=== PATIENT | male | born 1955 | race Caucasian/White ===

== ENCOUNTER 2017-05-12 13:48 | Emergency (ER) | payer OTHER ==
[~2017-05-12] VITALS: Ht 170.2 cm; Wt 72.7 kg
[~2017-05-12 13:48] MED LIST: ADVAIR IH; ASPRIN PO; IPRA0.2S51 HHN
--- NOTE | 2017-05-12 13:50 | ED.REPORT ---
HPI-General Illness Date of Service May 12, 2017 ED Provider: The patient is a 62 year old male with history of COPD, who was brought to the emergency department by EMS for sharp RLQ abdominal pain that began earlier today. His pain radiates through to his back. He has been on antibiotics over the last week and has had associated diarrhea. His pain today began after he had an episode of diarrhea. He denies fever, chills, nausea, vomiting, bloody stools, dysuria or hematuria. Nursing Notes Stated Complaint: abdominal pain Nursing Notes Reviewed: Yes Allergies: Coded Allergies: Sulfa (Sulfonamide Antibiotics) (Verified Allergy, Severe, USED WHEN CHILD - DOESN'T RECALL REACTION, 05/12/17) Scheduled ([Amox/K]) 1 TAB PO BID Flutic/Salmet-Expunged Drug, Do Not Renew! (Advair 500/50-Expunged Drug, Do Not Renew!) 60 Puff Disk 60 PUFF IH QID Ipratropium-Expunged Drug, Do Not Renew! (Ipratropium-Expunged Drug, Do Not Renew!) 2.5 Ml Soln 2.5 ML HHN QIDP Prednisone (PredniSONE) 20 Mg Tablet 20 MG PO DAILY taper Roflumilast (Daliresp) 500 Mcg Tablet 500 MCG PO DAILY General Time Seen by MD: 13:50 Chief Complaint Abdominal pain Hx Obtained From: Patient, EMS Arrived By: Ambulance Sudden in Onset?: Yes Onset Occurred: 1 - 4 hours ago Symptom Duration: Since onset Location: : Abdomen Quality: Painful Radiation: : Back Severity: Current: Moderate Severity: Maximum: Moderate Recent Healthcare: No recent hospitalization Similar Sx Previous: No Past Medical History Past Medical History COPD Family History Noncontributory Smoking History Unknown if Ever Smoker Social History Other Social History: Local resident Ambulatory Status Independent Review of Systems Full Review of Systems Constitutional: Denies: Chills, Fever GI: Reports: Abdominal pain, Diarrhea, Denies: Bloody/tarry stool, Hematochezia, Melena, Nausea, Vomiting Male: Denies Dysuria, Denies Hematuria Musculoskeletal: Reports: Back pain Complete sys rev & neg: except as marked. Physical Exam Vital Signs Vital Signs Date Time Temp Pulse Resp B/P Pulse Ox O2 Delivery O2 Flow Rate FiO2 05/12/17 16:32 36.5 83 16 121/85 96 Nasal Cannula 3 05/12/17 16:07 83 16 121/85 96 Nasal Cannula 3 05/12/17 16:01 86 16 122/92 98 Nasal Cannula 3 05/12/17 15:29 36.5 98 13 125/83 99 Nasal Cannula 3 05/12/17 13:58 36.8 92 18 119/63 96 Nasal Cannula 2 Initial VS: Reviewed Head / Eyes: Atraumatic, Normocephalic, PERRL ENT: Mucous membranes moist, Conjunctiva normal, No scleral icterus Neck: Supple, Non-tender, Full range of motion Cardiovascular: Regular rate & rhythm, Heart sounds normal, Intact distal pulses Lymphatic: No lymphadenopathy Extremities: Vascular intact, Neuro intact, No swelling, No tenderness Skin: Warm, Dry, No cyanosis Neurologic: Alert, Oriented, Nonfocal Psychiatric: Mood/affect normal, Behavior normal, Normal thought content General/Constitutional: Awake, Alert, Cooperative Respiratory / Chest: Breath sounds = bilat, No respiratory distress, No wheezing Rales / Rhonchi: Positive: Rales diffuse (fine) Abdomen: Soft, No guarding, No rebound, BS normoactive, No distention, No hernia, No palpable mass, No pulsatile mass Tenderness/Guarding/Rebound: Positive: Tender RLQ... (Mild) Interpretation & Diagnostics Lab Results Interpretation Result Diagram: 05/12/17 1400 05/12/17 1400 Test 05/12/17 14:00 White Blood Count 14.9th/mm3 (3.8-10.1) Red Blood Count 5.43mil/mm3 (4.40-5.80) Hemoglobin 15.3g/dL (13.8-17.2) Hematocrit 46.6% (41.0-50.0) Mean Corpuscular Volume 85.8fL (81-100) Mean Corpuscular Hemoglobin 28.2pg (27.0-35.0) Mean Corpuscular Hemoglobin Concent 32.8% (32.0-37.0) Red Cell Distribution Width 13.9% (12.3-15.4) Platelet Count 352bil/L (150-400) Neutrophils (%) (Auto) 79.2% (40-74) Lymphocytes (%) (Auto) 13.1% (14-46) Monocytes (%) (Auto) 5.6% (4-12) Eosinophils (%) (Auto) 1.3% (0-5) Basophils (%) (Auto) 0.3% (0-3) Sodium Level 138mEq/L (134-144) Potassium Level 4.0mEq/L (3.5-5.2) Chloride Level 99mEq/L (97-108) Carbon Dioxide Level 21mmol/L (18-29) Blood Urea Nitrogen 22mg/dL (8-27) Creatinine 1.02mg/dL (0.76-1.27) Estimat Glomerular Filtration Rate 79mL/min (>59) Glucose Level 145mg/dL (60-99) Calcium Level 9.0mg/dL (8.5-10.1) Magnesium Level 2.2mg/dL (1.6-2.6) Total Bilirubin 0.4mg/dL (0.0-1.2) Aspartate Amino Transf (AST/SGOT) 13U/L (0-50) Alanine Aminotransferase (ALT/SGPT) 13U/L (0-44) Alkaline Phosphatase 90U/L (25-160) Total Protein 7.1g/dL (6.4-8.4) Albumin 3.9g/dL (3.4-5.0) Lipase 28U/L (13-60) CT Abd / Pelvis Interpretation IMPRESSION: 1. Abdominal aortic aneurysm at 6.5 cm diameter with evidence of perianeurysmal hemorrhage but without visible extravasation of intraluminal contrast. 2. Regarding right lower quadrant pain, appendix is not specifically imaged but no inflammatory changes are evident around the cecum which is fluid-filled. 3. Pulmonary emphysema is apparent as seen on previous chest CT exams 4. Mild prostatic enlargement. 5. Hiatal hernia. Note: Findings discussed with Dr. Oakes in the ED at 1510 hrs. on 05/12/2017 Dictated by: Keenan Goss M.D. on 05/12/2017 at 15:12 Study type: Abdominal CT IV contrast, Abdom CT oral contrast Interpretation / Wet Read by: Interpret - Radiologist, Discussed w radiologist Re-Eval/Medical Decision Med Decision/Clinical Course Evidence of ruptured abdominal aortic aneurysm. Patient is not profoundly hypertensive however esmolol is initiated. Initial hemoglobin stable. Pain controlled with morphine. Patient will be transferred to [facility] for definitive management. Source of Hx: Old records, EMS Time of Eval: 15:14 Re-Evaluation/Progress Note: Rechecked the patient. Discussed CT results and plan for transfer down [facility] with the patient and his family members. They understand and agree. All questions were addressed. The patient would like to be a full code. Time of Eval: 15:30 Re-Evaluation/Progress Note: Rechecked the patient. His vitals are stable. Time of Eval: 15:40 Re-Evaluation/Progress Note: Rechecked the patient. Time of Eval: 15:55 Re-Evaluation/Progress Note: Rechecked the patient. He is aware of plan. Awaiting airlift. Time of Eval: 16:02 Re-Evaluation/Progress Note: Airlift is here to transfer the patient. Time of Eval: 16:12 Re-Evaluation/Progress Note: The patient has left the department. Consultation #1: Referral / Consult Name: Keenan Goss MD Call Returned at: 15:15 Note: Spoke with the radiologist about the patient's case. Consultation #2: Call Returned at: 15:29 Note: Discussed the patient's case with Dr. Hernandez from [facility]. Recommends transfer, esmolol, gtt, permissive hypotension. She will call airlift and would like us to call and see when ALS can be here. Consultation #3: Call Returned at: 15:35 Note: Airlift will be here in about 20 minutes. Counseled Regarding: Diagnosis, Lab results, Need for transfer Discharge & Departure Primary Impression: Leaking abdominal aortic aneurysm Disposition: Transfer, Acute Care Facility Receiving Hospital: [facility] Transfer Accepted: Yes Transfer Accepted at: 15:31 Transfer Reason: Higher level of care Spoke with: Attending physician (Dr. Hernandez) Patient Status: Stable, Stable for transfer, Stabilized within capabil Patient Informed: Yes Discharge Condition All VS Reviewed: Yes Condition: Stable Referrals: James Blackburn MD (PCP) Crit Care Except Billable Proc Time Spent: 75-104 minutes Services Performed: Patient management by me, Time spent at bedside, Reviewing test results, Reviewing imaging, Discussing patient care, Documentation in record, Time with fam/surrogate Critical Care Notes: See MDM Scribe Attestation Portions of this note were transcribed by Maki Brandon. I, Dr. Moore personally performed the history, physical exam and medical decision-making; I reviewed and confirmed the accuracy of the information in the transcribed note. Signed by: Soledad Moe, 05/12/17 at 1700. copies to: James Blackburn MD, Timothy S DO May 12, 2017 13:50 Maik Brandon May 12, 2017 13:53
[2017-05-12 13:58] VITALS: BP 119/63; PULSE 92; RESP 18; O2SAT 96
[2017-05-12 14:04] LABS: BASOPHILS % (AUTO) 0.3 % (0-3); EOSINOPHILS % (AUTO) 1.3 % (0-5); MONOCYTES % (AUTO) 5.6 % (4-12); Mean Corpuscular Hemoglobin 28.2 pg (27.0-35.0); Mean Corpuscular Volume 85.8 fL (81-100); NEUTROPHILS % (AUTO) 79.2 % (40-74); Platelet Count 352 bil/L (150-400)
[2017-05-12] MEDS ORDERED: 0.9% Sodium Chloride 1,000 ML IV ONE (14:05)
[2017-05-12] MEDS ORDERED: Ondansetron 2 mg/mL 2 mL Inj IVPUSH PRN (14:05)
[2017-05-12 14:26] LABS: Magnesium 2.2 mg/dL (1.6-2.6)
[2017-05-12] MEDS ORDERED: Esmolol 2,500 mg/250 mL NS 2,500,000 MCG in IV Premix 1 EACH IV SCH (15:15)
--- NOTE | 2017-05-12 15:26 | DRSVH ---
PROCEDURE: CT ABDOMEN AND PELVIS WITH CONTRAST (PNL-7102) INDICATIONS: RLQ/Flank pain TECHNIQUE: After the administration of oral and intravenous contrast, 5 mm thick sections acquired from the diap hragms to the symphysis. 5 mm thick coronal and sagittal reformats were performed. For radiation do se reduction, the following was used: automated exposure control, adjustment of mA and/or kV accordi ng to patient size. COMPARISON: None. FINDINGS: Image quality: Excellent. ABDOMEN: Lung bases: Lung bases are clear. Centrilobular emphysema is evident. Heart size is normal. Hiatal hernia. Solid organs: Liver and spleen are normal in size and enhancement. Gallbladder is normal. Biliary system is non-dilated. Pancreas enhances normally. No adrenal nodules. Kidneys are normal in size and enhancement, without hydronephrosis. A small cortical medullary cyst is present in the midpole of the right kidney. Peritoneum and bowel: Stomach, small bowel, and colon loops are normal in caliber and wall thickness . The cecum is fluid-filled. No pericecal fat stranding is apparent. The appendix is not seen. No karina e fluid or air. Nodes and vessels: Immediately caudal to the origin of the renal arteries is a saccular abdominal aor tic aneurysm that measures 6.4 cm transverse by 6.5 cm AP by 6.7 cm craniocaudal there is surrounding high density fluid compatible with blood that extends from the level of the portal vein superiorly, past the aortic bifurcation and along the right common iliac artery distally. The hemorrhage also tereza rounds the inferior vena cava inferior to the right renal vein. The aortic lumen is and the iliac ves sels are patent. Miscellaneous: No ventral hernias. PELVIS: Genitourinary: Bladder wall thickness is normal. Prostate is mildly enlarged with dystrophic calcifi cations. Miscellaneous: No inguinal hernias or adenopathy. Bones: No suspicious bony lesions. No vertebral body compression fractures. IMPRESSION: 1. Abdominal aortic aneurysm at 6.5 cm diameter with evidence of perianeurysmal hemorrhage but withou t visible extravasation of intraluminal contrast. 2. Regarding right lower quadrant pain, appendix is not specifically imaged but no inflammatory iyer es are evident around the cecum which is fluid-filled. 3. Pulmonary emphysema is apparent as seen on previous chest CT exams 4. Mild prostatic enlargement. 5. Hiatal hernia. Note: Findings discussed with Dr. Oakes in the ED at 1510 hrs. on 05/12/2017 Dictated by: Keenan Goss M.D. on 05/12/2017 at 15:12 Approved by: Keenan Goss M.D. on 05/12/2017 at 15:24
[2017-05-12 15:29] VITALS: BP 125/83; PULSE 98; RESP 13; O2SAT 99
[2017-05-12] MEDS ORDERED: ROFL500T PO (15:52)
[2017-05-12] MEDS ORDERED: AMOX/K PO (15:52)
[2017-05-12] MEDS ORDERED: PRE20 PO (15:52)
[2017-05-12 16:01] VITALS: BP 122/92; PULSE 86; RESP 16; O2SAT 98
[2017-05-12 16:07] VITALS: BP 121/85; PULSE 83; RESP 16; O2SAT 96
[2017-05-12 16:32] VITALS: BP 121/85; PULSE 83; RESP 16; O2SAT 96
== END 2017-05-12 16:15 | disposition short-term general hospital (02) ==
LOC: SED 13:48 → EDBD 13:48 → EDUNIT# 13:48 → SED 16:15
DX: I71.3 Abdominal aortic aneurysm, ruptured (principal); R19.7 Diarrhea, unspecified; J44.9 Chronic obstructive pulmonary disease, unspecified; Z88.2 Allergy status to sulfonamides
CPT/HCPCS: 36415; 74177; 80053; 83690; 83735; 85025; 86922; 96361; 96374; 96375; 96376; 99291; 99292; J2270; J2405; J7030; Q9967

== ENCOUNTER 2017-06-11 15:10 | Emergency (ER) | payer OTHER ==
[~2017-06-11] VITALS: Ht 170.2 cm; Wt 66.0 kg
[~2017-06-11 15:10] MED LIST changes: +AMOX/K PO; -ASPRIN PO; +PRE20 PO; +ROFL500T PO
[2017-06-11 15:16] VITALS: BP 144/79; PULSE 106; RESP 15; O2SAT 95
--- NOTE | 2017-06-11 15:29 | ED.REPORT ---
HPI-Abd Pain M 40 and Over Date of Service Jun 11, 2017 ED Provider: Albino Tomlin DO Pt is a 62 year old male with a hx of COPD, pneumonia, HTN, hyperlipidemia, emphysema and a recent ruptured aortic aneurysm s/p repair presenting to the ED via EMS from [facility] complaining of intermittent periumbilical abdominal pain and discomfort onset 6 days ago worsened today. Associated symptoms include nasal congestion, nausea and a fever (99.7). Denies constipation, vomiting, or diarrhea. The pain is not exacerbated or relieved by anything. He was recently hospitalized for 9 days at [facility] for a repair of a leaking aortic aneurysm and has been at [facility] ever since. He is regularly on 3L of Oxygen at home. Nursing Notes Stated Complaint: ABD PAIN Chief Complaint: Male Abdominal Pain Nursing Notes Reviewed: Yes Allergies: Coded Allergies: Sulfa (Sulfonamide Antibiotics) (Verified Allergy, Severe, USED WHEN CHILD - DOESN'T RECALL REACTION, 05/12/17) Scheduled ([Amox/K]) 1 TAB PO BID Flutic/Salmet-Expunged Drug, Do Not Renew! (Advair 500/50-Expunged Drug, Do Not Renew!) 60 Puff Disk 60 PUFF IH QID Ipratropium-Expunged Drug, Do Not Renew! (Ipratropium-Expunged Drug, Do Not Renew!) 2.5 Ml Soln 2.5 ML HHN QIDP Prednisone (PredniSONE) 20 Mg Tablet 20 MG PO DAILY taper Roflumilast (Daliresp) 500 Mcg Tablet 500 MCG PO DAILY General Time Seen by MD: 15:15 Chief Complaint Abdominal pain Hx Obtained From: Patient Arrived By: Walk-in Sudden in Onset?: No Onset Occurred: 6 days ago Symptom Duration: Intermittent Progression since Onset: Constant Location: : Periumbilical Quality: Painful Severity: Current: Moderate Severity: Maximum: Moderate Recent Healthcare: Recent hospitalization, Previous surgery Similar Sx Previous: No Past Medical History Past Medical History Emphysema Reports: COPD, Hyperlipidemia, Hypertension Past Surgical History Recent leaking aortic aneurysm repair surgery Family History Noncontributory Smoking History Unknown if Ever Smoker Social History Other Social History: Local resident Ambulatory Status Independent Review of Systems Constitutional: Reports: Fever GI: Reports: Abdominal pain, Nausea, Denies: Constipation, Diarrhea, Vomiting Complete sys rev & neg: except as marked. Ears / Nose / Throat: Reports: Nasal congestion Physical Exam Initial Vital Signs Vital Signs (First) Date Time Temp Pulse Resp B/P Pulse Ox O2 Delivery O2 Flow Rate FiO2 06/11/17 15:16 36.7 106 15 144/79 95 Nasal Cannula 3 Initial VS: Reviewed Head / Eyes: Atraumatic, Normocephalic, PERRL ENT: Mucous membranes moist, Conjunctiva normal, No scleral icterus Extremities: Vascular intact, Neuro intact, No swelling, No tenderness Skin: Warm, Dry, No cyanosis Neurologic: Alert, Oriented, Nonfocal Psychiatric: Mood/affect normal, Behavior normal, Normal thought content General/Constitutional: Awake, Alert, No acute distress, Well appearing Respiratory / Chest: Breath sounds NL, Breath sounds = bilat, No respiratory distress, No rales, No rhonchi, No wheezing Cardiovascular: Regular rhythm Heart Rate / Rhythm: Positive: Tachycardia Heart sounds diminished Abdomen: Atraumatic, Soft, No guarding, No rebound Bowel Sounds / Distention: Positive: Distention mild Mild periumbilical discomfort. Well healed midline abdominal scar. Interpretation & Diagnostics Lab Results Interpretation Result Diagram: 06/11/17 1615 06/11/17 1615 Test 06/11/17 16:15 06/11/17 19:10 White Blood Count 6.1th/mm3 (3.8-10.1) Red Blood Count 4.14mil/mm3 (4.40-5.80) Hemoglobin 11.6g/dL (13.8-17.2) Hematocrit 35.8% (41.0-50.0) Mean Corpuscular Volume 86.5fL (81-100) Mean Corpuscular Hemoglobin 28.0pg (27.0-35.0) Mean Corpuscular Hemoglobin Concent 32.4% (32.0-37.0) Red Cell Distribution Width 13.4% (12.3-15.4) Platelet Count 265bil/L (150-400) Neutrophils (%) (Auto) 74.2% (40-74) Lymphocytes (%) (Auto) 16.3% (14-46) Monocytes (%) (Auto) 5.9% (4-12) Eosinophils (%) (Auto) 2.8% (0-5) Basophils (%) (Auto) 0.5% (0-3) Prothrombin Time 10.4sec (8.1-12.5) Prothromb Time International Ratio 0.97ratio Sodium Level 136mEq/L (134-144) Potassium Level 3.6mEq/L (3.5-5.2) Chloride Level 96mEq/L (97-108) Carbon Dioxide Level 24mmol/L (18-29) Blood Urea Nitrogen 14mg/dL (8-27) Creatinine 0.86mg/dL (0.76-1.27) Estimat Glomerular Filtration Rate 96mL/min (>59) Glucose Level 96mg/dL (60-99) Lactic Acid Level 0.9mmol/L (0.4-2.0) Calcium Level 9.4mg/dL (8.5-10.1) Magnesium Level 1.8mg/dL (1.6-2.6) Total Bilirubin 0.4mg/dL (0.0-1.2) Aspartate Amino Transf (AST/SGOT) 24U/L (0-50) Alanine Aminotransferase (ALT/SGPT) 32U/L (0-44) Alkaline Phosphatase 113U/L (25-160) Total Protein 7.9g/dL (6.4-8.4) Albumin 3.9g/dL (3.4-5.0) Lipase 71U/L (13-60) Urine Color Yellow (YELLOW) Urine Appearance Clear (CLEAR,HAZY) Urine pH 5.5 (5.0-8.0) Urine Specific [place] 1.010 (1.003-1.035) Urine Protein Negativemg/dL (NEG,TRACE) Urine Glucose (UA) Negativemg/dL (NEGATIVE) Urine Ketones 15mg/dL (NEGATIVE) Urine Occult Blood Trace (NEGATIVE) Urine Nitrite Negative (NEGATIVE) Urine Bilirubin Negative (NEGATIVE) Urine Urobilinogen Normalmg/dL (NORMAL) Urine Leukocyte Esterase Negative (NEGATIVE) Urine RBC 0-2/hpf (0-2) Urine WBC 0-5/hpf (0-5) Urine Epithelial Cells Few/hpf (NONE-MOD) Urine Crystals None seen (NONE SEEN) Urine Bacteria None/hpf (NONE-FEW) Urine Hyaline Casts None/lpf (NONE) Urine Granular Casts None seen (NONE SEEN) Urine Waxy Casts None seen (NONE SEEN) Urine Red Blood Cell Casts None seen (NONE SEEN) Urine White Blood Cell Casts None seen (NONE SEEN) Urine Mucus None seen (None Seen) Urine Trichomonas None seen (NONE SEEN) Urine Yeast None (NONE SEEN) Urinalysis Comment None Urine Culture Reflexed Not indicated ECG Interpretation ECG Interpretation: Sinus tachycardia, LAFB. No ST changes appreciated. No significant change from September 18 2004. Time: 15:59 Interpreted by: ED physician Abnormal Rate: 100 (103) CT Abd / Pelvis Interpretation IMPRESSION: Interval postoperative changes of open abdominal aortic aneurysm repair. There is mild inflammatory change about the repair with no evidence of recurrent rupture or leak. These findings may represent simple postoperative change. Infection cannot be excluded. Heterogeneous right renal enhancement may represent differential flow resulting from multiple renal arteries. Both kidneys enhance which makes renal infarction unlikely. Please correlate for clinical symptoms of renal dysfunction. Recommend short-term followup dedicated multiphasic renal CT if pain persists or if clinical evidence of renal dysfunction arises. Findings and recommendations discussed with Dr. Tomlin via telephone ([phone]) at 18:45 on 06/11/2017. Dictated by: Esteban Zapata M.D. on 06/11/2017 at 19:05 ADDENDUM: Heterogeneous right renal enhancement representing differential flow caused by relative narrowing and attenuation of an accessory renal artery delivering blood to the anterior aspect of the right kidney. This portion of the right kidney demonstrates delayed enhancement (essentially a partially delayed nephrogram) relative to the remaining right kidney and the left kidney most consistent with an ischemic state. Findings and recommendations discussed with Dr. Tomlin via telephone ([phone]) at 20:20 on 06/11/2017. Dictated by: Esteban Zapata M.D. on 06/11/2017 at 20:28 Study type: Abdominal CT IV contrast, Abdom CT oral contrast Interpretation / Wet Read by: Interpret - Radiologist Re-Eval/Medical Decision Med Decision/Clinical Course 62-year-old male with a history of recent AAA rupture status post emergency surgical repair at [facility] on 05/12/17 complicated by postoperative pneumonia , COPD on 3 L of O2 at home, and hypertension presenting from [facility] in [place] with periumbilical abdominal pain for the past several days. His pain is rated at 4.5 out of 10 at its worst and has been progressing until today. He wants to make sure that he is okay in light of all the things he has recently been through. They attempted to perform an JOE R and converted to open aortobifemoral bypass. Surgical findings included saccular infrarenal aneurysm. His EKG is at baseline, other than tachycardic. UA does not show evidence of UTI. Pt was d/c'd home in stable condition. Received a phone call from radiology with addendum report as seen above with some concern about renal ischemia. I called and spoke with his surgeon, Dr. Bragg at [facility] who reviewed his images and labs with me and did not feel that there was any cause for concern. He has a followup appointment scheduled this week with Jake. Time of Eval: 18:43 Patient Status: Condition improved Re-Evaluation/Progress Note: Discussed radiology and lab results and plan for discharge. Pt understands and agrees with plan. Consultation : Note: I spoke with Dr. Bragg, his vascular surgeon at [facility] at [address]. He has no concerns about his renal function or the appearance of his kidneys on imaging. He will be happy to see patient this upcoming week in follow-up. Counseled Regarding: Diagnosis, Lab results, Need for follow-up, When/why to return to ED Discharge & Departure Primary Impression: Periumbilical abdominal pain Additional Impression: Tachycardia Disposition: Home Vital Signs - All Vital Signs Date Time Temp Pulse Resp B/P Pulse Ox O2 Delivery O2 Flow Rate FiO2 06/11/17 19:43 36.5 78 16 131/74 99 Nasal Cannula 3 06/11/17 18:14 36.8 101 16 129/88 98 Room Air 06/11/17 15:16 36.7 106 15 144/79 95 Nasal Cannula 3 )( All Prior VS Reviewed: Yes Condition: Improved Patient Instructions: Acute Abdominal Pain (ED) Additional Instructions: Thank you for entrusting us with your care today. Your abdominal CT scan did not show any sign of a leak in your aneurysm repair. There is some inflammation , which is not abnormal at this point after your surgery. Your urine results were normal and did not show any sign of a bladder infection. Follow up with your vascular doctor with next week. We sent the images of the CT today down to [facility] electronically. Return to the ER if you develop any new or worsening symptoms. Referrals: James Blackburn MD (PCP) Scribe Attestation Portions of this note were transcribed by Claribel Lei. I, Dr. Tomlin personally performed the history, physical exam and medical decision-making; I reviewed and confirmed the accuracy of the information in the transcribed note. Signed by: Soledad Haines, 06/11/2017. copies to: Jaems Blackburn MD, Gary R DO Jun 11, 2017 15:29 CLARIBEL LEI Jun 11, 2017 15:51
[2017-06-11] MEDS ORDERED: Iohexol 300 mg/mL 30 mL Inj PO ONE (15:50)
[2017-06-11] MEDS ORDERED: HYDROmorphone 0.5 mg/0.5 mL iSecure Syringe IVPUSH PRN (15:50)
[2017-06-11] MEDS ORDERED: Ondansetron 2 mg/mL 2 mL Inj IVPUSH PRN (15:50)
[2017-06-11] MEDS ORDERED: 0.9% Sodium Chloride 1,000 ML IV ONE (16:09)
[2017-06-11 17:14] LABS: BASOPHILS % (AUTO) 0.5 % (0-3); EOSINOPHILS % (AUTO) 2.8 % (0-5); MONOCYTES % (AUTO) 5.9 % (4-12); Mean Corpuscular Volume 86.5 fL (81-100); NEUTROPHILS % (AUTO) 74.2 % (40-74); Platelet Count 265 bil/L (150-400)
[2017-06-11 17:18] LABS: INR 0.97 ratio
[2017-06-11 17:27] LABS: Magnesium 1.8 mg/dL (1.6-2.6)
[2017-06-11 18:14] VITALS: BP 129/88; PULSE 101; RESP 16; O2SAT 98
--- NOTE | 2017-06-11 19:15 | DRSVH ---
PROCEDURE: CT ABDOMEN AND PELVIS WITH CONTRAST (PNL-7102) INDICATIONS: recent AAA surgery, periumbilical pain TECHNIQUE: After the administration of oral and intravenous contrast, 5 mm thick sections acquired from the diap hragms to the symphysis. 5 mm thick coronal and sagittal reformats were performed. For radiation do se reduction, the following was used: automated exposure control, adjustment of mA and/or kV accordi ng to patient size. COMPARISON: [facility], CT, CT ABD PELVIS W CON, 05/12/2017, 14:55. FINDINGS: Image quality: Excellent. ABDOMEN: Lung bases: Lung bases are clear. Heart size is normal. Solid organs: Heterogeneous enhancement in the right kidney with the posterior half of the right kidn ey enhancing in similar manner to the left kidney. However, both kidneys enhance with no evidence of complete renal infarction. The liver, gallbladder, pancreas, spleen and adrenal glands are normal.. Peritoneum and bowel: Stomach, small bowel, and colon loops are normal in caliber and wall thickness . No free fluid or air. Nodes and vessels: Postoperative changes of open abdominal aortic aneurysm repair. There is mild elzbieta stinctness and inflammatory change about the repair itself with a small amount of likely postoperativ e fluid immediately inferior to the aortic bifurcation. There is no extravasated contrast to suggest new rupture of the repair. Old left common and external iliac stents. Miscellaneous: No ventral hernias. PELVIS: Genitourinary: Bladder wall thickness is normal. Miscellaneous: No inguinal hernias or adenopathy. Bones: No suspicious bony lesions. No vertebral body compression fractures. IMPRESSION: Interval postoperative changes of open abdominal aortic aneurysm repair. There is mild inflammatory c hange about the repair with no evidence of recurrent rupture or leak. These findings may represent si mple postoperative change. Infection cannot be excluded. Heterogeneous right renal enhancement may represent differential flow resulting from multiple renal a rteries. Both kidneys enhance which makes renal infarction unlikely. Please correlate for clinical sy mptoms of renal dysfunction. Recommend short-term followup dedicated multiphasic renal CT if pain per sists or if clinical evidence of renal dysfunction arises. Findings and recommendations discussed with Dr. Tomlin via telephone ([phone]) at 18:45 on 09/2017. Dictated by: Esteban Zapata M.D. on 06/11/2017 at 19:05 Approved by: Esteban Zapata M.D. on 06/11/2017 at 19:14
[2017-06-11 19:43] VITALS: BP 131/74; PULSE 78; RESP 16; O2SAT 99
[2017-06-11 19:53] LABS: APPEARANCE,URINE CLEAR (CLEAR,HAZY); COLOR,URINE YELLOW (YELLOW); OCCULT BLOOD,URINE TRACE (NEGATIVE); PH,URINE 5.5 (5.0-8.0); UROBILINOGEN,URINE NORMAL (NORMAL)
== END 2017-06-11 19:58 ==
LOC: EDUNIT# 15:10 → SED 15:10 → EDBD 15:10 → SED 19:58
DX: R10.33 Periumbilical pain (principal); R00.0 Tachycardia, unspecified; J44.9 Chronic obstructive pulmonary disease, unspecified; I10 Essential (primary) hypertension; E78.5 Hyperlipidemia, unspecified; Z88.2 Allergy status to sulfonamides; Z87.01 Personal history of pneumonia (recurrent)
CPT/HCPCS: 36415; 74177; 80053; 81000; 83605; 83690; 83735; 85025; 85610; 93005; 96361; 96374; 96375; 99285; J1170; J2405; J7030; Q9967

== ENCOUNTER 2017-06-27 19:17 | Inpatient (IN) | payer OTHER ==
[~2017-06-27] VITALS: Ht 171.4 cm; Wt 63.4 kg
--- NOTE | 2017-06-27 19:30 | ED.REPORT ---
HPI-Chest Pain 40 and Over Date of Service Jun 27, 2017 ED Provider: Eddie Lu DO Pt is a 62 year old male with a hx of COPD, pneumonia, HTN, hyperlipidemia, emphysema and an aortic aneurysm repair presenting to the ED via EMS from [facility] c/o palpitations onset two days ago. Pt was hospitalized for nine days in April 2017 for a repair of a leaking aortic aneurysm at [facility] and has been at [facility] ever since. He states that his palpitations are exacerbated by movement. Additional symptoms include "uncomfortable" chest pain, anxiety, and one episode of vomiting yesterday. He denies diarrhea, fever, cough, or SOB. Nursing Notes Stated Complaint: CHEST PAIN, ANXIETY Nursing Notes Reviewed: Yes Allergies: Coded Allergies: Sulfa (Sulfonamide Antibiotics) (Verified Allergy, Severe, USED WHEN CHILD - DOESN'T RECALL REACTION, 05/12/17) Scheduled ([Amox/K]) 1 TAB PO BID Flutic/Salmet-Expunged Drug, Do Not Renew! (Advair 500/50-Expunged Drug, Do Not Renew!) 60 Puff Disk 60 PUFF IH QID Ipratropium-Expunged Drug, Do Not Renew! (Ipratropium-Expunged Drug, Do Not Renew!) 2.5 Ml Soln 2.5 ML HHN QIDP Prednisone (PredniSONE) 20 Mg Tablet 20 MG PO DAILY taper Roflumilast (Daliresp) 500 Mcg Tablet 500 MCG PO DAILY General Time Seen by MD: 19:30 Chief Complaint Other (Palpitations) Hx Obtained From: Patient Arrived By: Ambulance Sudden in Onset?: No Onset Occurred: 2 days ago Location: : Back: Chest right Quality: Painful Severity: Current: Mild Severity: Maximum: Moderate Recent Healthcare: Recent doctor visit, Recent hospitalization Similar Sx Previous: No Risk Factors )( CAD Risk Stratification Hyperlipidemia Hypertension Risk factors reviewed )( TAD Risk Stratification Hypertension Pre-exist aortic aneurysm Risk factors reviewed )( PE Risk Stratification Surgery Last 60 Days Risk factors reviewed Past Medical History Past Medical History Emphysema Pneumonia Abdominal aortic aneurysm Reports: COPD, Hyperlipidemia, Hypertension Past Surgical History Recent leaking aortic aneurysm repair surgery at [facility] April 2017 Family History Noncontributory Smoking History Unknown if Ever Smoker Social History Other Social History: Local resident Ambulatory Status Independent Review of Systems Constitutional: Denies: Fever Respiratory: Denies: Non-productive cough, Prod cough, clear, Shortness of breath Cardiovascular: Reports: Chest pain (uncomfortable), Palpitations GI: Reports: Vomiting (one episode yesterday), Denies: Diarrhea Psychiatric: Reports: Anxiety Complete sys rev & neg: except as marked. Physical Exam Initial Vital Signs Vital Signs (First) Date Time Temp Pulse Resp B/P Pulse Ox O2 Delivery O2 Flow Rate FiO2 06/27/17 19:35 36.6 122 27 154/98 96 Nasal Cannula 3 Initial VS: Reviewed Head / Eyes: Atraumatic, Normocephalic Neck: Supple, Full range of motion Extremities: Vascular intact, Neuro intact, No swelling, No tenderness Skin: Warm, Dry, No cyanosis Neurologic: Alert, Oriented, Nonfocal Psychiatric: Mood/affect normal, Behavior normal, Normal thought content General/Constitutional: Awake, Alert Distress / Hydration: Positive: Distress moderate Respiratory / Chest: Atraumatic, Breath sounds = bilat Diminished breath sounds Barreled chest Cardiovascular: Heart rate NL, Heart sounds NL Heart Rate / Rhythm: Positive: Tachycardia Abdomen: Soft, Non-tender Normal healing scar Interpretation & Diagnostics CT Angiogram Chest: Impression: No acute occlusive PE. Atherosclerotic disease. Advanced pulmonary emphysema. Ill-defined nodular opacity in the left upper lobe measuring approximately 1.8 cm single dimension; follow-up is advised as neoplastic lesion not excluded. Lab Results Interpretation Result Diagram: 06/27/17192806/27/171928 Test 06/27/17 19:29 06/28/17 00:00 White Blood Count 5.2th/mm3 (3.8-10.1) Red Blood Count 5.04mil/mm3 (4.40-5.80) Hemoglobin 13.4g/dL (13.8-17.2) Hematocrit 40.5% (41.0-50.0) Mean Corpuscular Volume 80.4fL (81-100) Mean Corpuscular Hemoglobin 26.6pg (27.0-35.0) Mean Corpuscular Hemoglobin Concent 33.1% (32.0-37.0) Red Cell Distribution Width 14.2% (12.3-15.4) Platelet Count 275bil/L (150-400) Neutrophils (%) (Auto) 73.0% (40-74) Lymphocytes (%) (Auto) 18.1% (14-46) Monocytes (%) (Auto) 7.0% (4-12) Eosinophils (%) (Auto) 1.7% (0-5) Basophils (%) (Auto) 0.2% (0-3) Prothrombin Time 11.0sec (8.1-12.5) Prothromb Time International Ratio 1.03ratio D-Dimer 1.62mg/L FEU (<0.50) Sodium Level 135mEq/L (134-144) Potassium Level 3.4mEq/L (3.5-5.2) Chloride Level 95mEq/L (97-108) Carbon Dioxide Level 25mmol/L (18-29) Blood Urea Nitrogen 13mg/dL (8-27) Creatinine 1.04mg/dL (0.76-1.27) Estimat Glomerular Filtration Rate 77mL/min (>59) Glucose Level 126mg/dL (60-99) Calcium Level 9.0mg/dL (8.5-10.1) Magnesium Level 1.7mg/dL (1.6-2.6) Total Bilirubin 0.5mg/dL (0.0-1.2) Aspartate Amino Transf (AST/SGOT) 14U/L (0-50) Alanine Aminotransferase (ALT/SGPT) 15U/L (0-44) Alkaline Phosphatase 121U/L (25-160) Troponin T < 0.010ug/L (0.0-0.011) Total Protein 7.5g/dL (6.4-8.4) Albumin 3.7g/dL (3.4-5.0) Procalcitonin 0.12ng/mL (0.00-0.08) Hold Welsh Top Tube Received (Received) Hold Urine Received (Received) ECG Interpretation ECG Interpretation: Sinus tachycardia. rate 117 Inferior infarct, old Time: 19:26 Interpreted by: ED physician X-Ray Chest Interpretation Chest Xray Interpretation: IMPRESSION: 1. Severe emphysematous change with overlying aspiration/infection or pulmonary edema. Dictated by: Maia Tamez M.D. on 06/27/2017 at 19:46 Approved by: Maia Tamez M.D. on 06/27/2017 at 19:49 View: Portable, 1 view Interpretation / Wet Read by: Interpret - Radiologist CT Abd / Pelvis Interpretation Impression: AAA repair noted; exact stability unknown in the abscense of prior studies. Aneursymal sac is somewhat inhomogenous measuring approximately 4.4x4.3 cm, 23/4. Irregular contour of the infrarenal abdominal aorta just cranial to the aneurysmal sac noted. Assessment is limited in the abscence of angiographic technique. No aortoiliac occlusion. Hypodense lesion in the retropancreatic region, 50/4 may represent a small-low attenuation hematoma related to recent surgery. Interpretation / Wet Read by: Interpret - Radiologist Re-Eval/Medical Decision Source of Hx: Old records Time of Eval: 23:15 Re-Evaluation/Progress Note: Patient rechecked. Discussed plan for admission. Patient understands and agrees with plan. All questions addressed at this time. Consultation : Referral / Consult Name: Enrique Pham MD Consulted With: Hospitalist Call Returned at: 23:36 Family Health Nurse Practitioner: Will see patient, Agrees with plan, Accepts admit Note: Discussed pt's case with hospitalist, Dr. Pham. He accepts admission. Counseled Regarding: Diagnosis, Lab results, Need for admission Discharge & Departure Primary Impression: Acute exacerbation of chronic obstructive pulmonary disease (COPD) Additional Impressions: Bilateral pneumonia Pneumonia type: due to unspecified organism Lung location: unspecified part of lung Qualified Code: J18.9 - Pneumonia, unspecified organism Tachycardia Disposition: ADMITTED TO HOSPITAL Discharge Condition All VS Reviewed: Yes Condition: Stable Referrals: James Blackburn MD (PCP) Scribe Attestation Portions of this note were transcribed by Magnolia Middleton. I, Dr. Lu, personally performed the history, physical exam and medical decision-making; I reviewed and confirmed the accuracy of the information in the transcribed note. copies to: James Blackburn MD, Todd P DO Jun 27, 2017 19:30 Magnolia Middleton Jun 27, 2017 19:36
[2017-06-27 19:35] VITALS: BP 154/98; PULSE 122; RESP 27; O2SAT 96
[2017-06-27] MEDS ORDERED: 0.9% Sodium Chloride 1,000 ML IV ONE (19:35)
[2017-06-27 19:46] LABS: BASOPHILS % (AUTO) 0.2 % (0-3); EOSINOPHILS % (AUTO) 1.7 % (0-5); Mean Corpuscular Hemoglobin 26.6 pg (27.0-35.0); Mean Corpuscular Volume 80.4 fL (81-100); Platelet Count 275 bil/L (150-400)
--- NOTE | 2017-06-27 19:50 | DRSVH ---
PROCEDURE: X-RAY CHEST ONE VIEW, PORTABLE ([id number]) INDICATIONS: chest pain TECHNIQUE: One view of the chest was acquired. COMPARISON: None. FINDINGS: Surgical changes and devices: None. Lungs and pleura: The lung volumes are large, the diaphragms are flattened, and there is a paucity of vessels in the upper lungs, suggesting emphysema. Patchy airspace opacities are present at the left lung base. Mediastinum: Mediastinal contours appear normal. Heart size is normal. Bones and chest wall: No suspicious bony lesions. Overlying soft tissues appear unremarkable. IMPRESSION: 1. Severe emphysematous change with overlying aspiration/infection or pulmonary edema. Dictated by: Maia Tamez M.D. on 06/27/2017 at 19:46 Approved by: Maia Tamez M.D. on 06/27/2017 at 19:49
[2017-06-27] MEDS ORDERED: Albuterol-Ipratropium 3 mL Inhalation Solution NEB ONE ×2 (20:00→22:30)
[2017-06-27] MEDS ORDERED: Piperacillin-Tazo 3.375 Gm Inj 3.375 GM in Dextrose 5% Minibag Plus 50 ML IV ONE (20:00)
[2017-06-27] MEDS ORDERED: MethylprednisoLONE Sodium Succinate 62.5 mg/mL 2 mL Inj IVPUSH ONE (20:00)
[2017-06-27 20:07] LABS: TROPONIN T < 0.010 ug/L (0.0-0.011)
[2017-06-27 20:09] LABS: INR 1.03 ratio
[2017-06-27 20:16] LABS: Magnesium 1.7 mg/dL (1.6-2.6)
[2017-06-27 20:22] VITALS: PULSE 115; RESP 18; O2SAT 97
[2017-06-27 21:26] VITALS: BP 148/80; PULSE 112; RESP 20; O2SAT 98
[2017-06-27 22:57] VITALS: PULSE 110; RESP 18; O2SAT 98
[2017-06-27] MEDS ORDERED: Ondansetron 2 mg/mL 2 mL Inj IVPUSH PRN (23:40)
[2017-06-27] MEDS ORDERED: Polyethylene Glycol (PEG) 17 Gm Powder PO PRN (23:40)
[2017-06-27] MEDS ORDERED: Alum-Mag Hydrox-Simeth 30 mL Suspension PO PRN (23:40)
[2017-06-27 23:57] VITALS: BP 143/73; PULSE 119; RESP 23; O2SAT 94
[2017-06-28] VITALS (18 sets, daily range): BP systolic 126–156; BP diastolic 66–86; PULSE 110–138; RESP 19–26; O2SAT 93–98
--- NOTE | 2017-06-28 00:40 | PCM.HPMED ---
Subjective Date of Service Jun 28, 2017 Primary Provider: Admitting Physician: Primary Care Physician: James Blackburn MD Attending Physician: Admit Status: From the Emergency Department, Remote Telemetry Chief Complaint: Palpitations History of Present Illness: Mr. Chang is a pleasant 62-year-old gentleman with a recent history of ruptured AAA status post open aortobifemoral bypass, chronic hypoxemic respiratory failure secondary to advancing COPD with emphysematous changes, and hypertension, presented to [facility] via EMS from [facility] with a three-day history of heart palpitations, increased heart rate, and general feeling of malaise, without any associated fever, chills, or abdominal pain. Initial imaging included CT abdomen and pelvis with contrast noted stable AAA repair in no associated large hematomas, pulmonary CTA was also completed secondary to increased d-dimer, which did not reveal any acute occlusive PEs, but did reveal a 1.8 cm ill-defined nodular opacity in the left upper lobe. Patient was admitted for evaluation and treatment of suspected pneumonia versus acute exacerbation of COPD. - Hospital day one Mr. Chang states that he has noticed increased heart rate or decrease in 3 days , without any exacerbating or initial etiology identified. He denies any changes to his medications. He notes many sick contacts within his care facility, and shares that his recovery from his recent AAA repair has been unremarkable. He denies any associated fever, chills, nausea, persistent vomiting; patient does note to one episode of vomiting prior to admission, thought to be secondary to a protein drink mixed with applesauce, which he reports made him nauseated and led to one episode of emesis. He notes complete resolution of his nausea after that episode. He denies any changes to his cardiac medications, and denies any activity above baseline. He denies any increase in his oxygen supplementation, reported as 3 L continuous. Patient was recently hospitalized at [facility], and emergent transfer from [facility], secondary to ruptured AAA. At [facility], endovascular repair was converted to open repair secondary to malfunction of the stent. He has been recovering at [facility] since discharge from [facility] earlier this month. Patient recalls that he was diagnosed with pneumonia during that hospitalization. Patient states that he was given a "experimental" antibiotic to treat this pneumonia, but is unable to recall the type of pneumonia nor the name of the treatment. In the ED, T 36.6, P1 122, R 27, blood pressure 154/98, 96% on 3 L nasal cannula ; initial labs revealed white count 5.2 with no shift, hemoglobin 13.4, potassium 3.4, remaining electrolytes and range, creatinine 1.04, LFTs within range, troponin T negative, procalcitonin 0.12; d-dimer 1.62; Initial imaging included CT abdomen and pelvis with contrast noted stable AAA repair in no associated large hematomas, pulmonary CTA was also completed secondary to increased d-dimer, which did not reveal any acute occlusive PEs, but did reveal a 1.8 cm ill-defined nodular opacity in the left upper lobe. Initial therapies included nebulizers as needed, Zosyn, Solu-Medrol 125 mg IV push 1, and 2 L normal saline. Patient was transported to medical floor in stable condition, with continuation of steroid administration, antibiotics including Zosyn and azithromycin. Review of Systems: Complete review of systems obtained, pertinent positives and negatives as noted in history of present illness Allergies Coded Allergies: Sulfa (Sulfonamide Antibiotics) (Verified Allergy, Severe, USED WHEN CHILD - DOESN'T RECALL REACTION, 06/28/17) Home Medications Obtained from [facility] Documentation dated 06/03/2017 Jake Chang [id number] 1955 06/03/2017 12:40 PM 11/04 Medications (Added or Continued this visit) Start Date Medication Directions Stop Date 06/20/2014 Advair HFA 230 mcg-21 mcg/actuation aerosol inhaler inhale 2 puff by inhalation route 2 times every day in the morning and evening amlodipine 10 mg tablet take 1 tablet by oral route every day Aspir-81 81 mg tablet,delayed release take 1 tablet by oral route every day atorvastatin 40 mg tablet take 1 tablet by oral route every day 02/08/2012 Atrovent HFA 17 mcg/actuation Aerosol Inhaler inhale 2 puff (34MCG) by inhalation route 4 times every day Daliresp 500 mcg tablet take 1 tablet by oral route every day 02/24/2011 ipratropium bromide 0.02 % Soln for Inhalation inhale 2.5 milliliter (500MCG) by inhalation route every 6 hours via nebulizer polyethylene glycol 3350 17 gram oral powder packet take 1 packet by oral route every day mixed with 8 oz. water, juice, soda, coffee or tea prednisone 10 mg tablet take 1 tablet by oral route every day for 2 days ProAir HFA 90 mcg/actuation aerosol inhaler inhale 2 puff by inhalation route every 4 - 6 hours as needed PMH Ruptured AAA status post open repair, aortobifemoral bypass COPD with emphysema Chronic hypoxemic respiratory failure Hypertension Hyperlipidemia Surgical History Ruptured AAA status post open repair, aortobifemoral bypass Eustachian tubes Family History Patient reports extensive history of malignancy in both of his parents, reported as lung cancer; mother was reported to have small cell within the chest wall, father was reported to have from non-small cell lung cancer Denies any known family history of diabetes, coronary artery disease Social History Hx Alcohol Use: Yes (QUIT 14 YEARS AGO) Hx Substance Use: Yes (very distant history, 1979) Hx Tobacco Use: Yes (quit Oct 2009) Smoking Status: Former Smoker (crit 2009) Living Arrangement: Nursing Home Facility ([facility]) Exam Vital Signs Vital Sign - Last Date Time Temp Pulse Resp B/P Pulse Ox O2 Delivery O2 Flow Rate FiO2 06/27/17 23:57 119 23 143/73 94 Nasal Cannula 4 06/27/17 19:35 36.6 Intake and Output 06/27/17 06/27/17 06/28/17 Cumulative From/Thru 15:00 23:00 07:00 06/27/17 19:35 - 06/27/17 20:08 Intake Total 1000 ml 1000 ml Balance 1000 ml 1000 ml Intake IV Total 1000 ml 1000 ml Exam General: Alert and oriented 3; pleasant gentleman resting cross legged in bed in no acute distress HEENT: Atraumatic, normocephalic, sclera anicteric, membranes moist; NC in place Neck: Full range of motion without pain Cardiac: Regular rhythm with tachycardic rate at time of examination without any appreciable murmurs Respiratory: Decreased airflow all contreras, slight expiratory wheeze noted bilateral upper contreras Chest: Atraumatic without any reproducible pain with palpation Abdomen: Soft, nontender, nondistended; healed linear scar noted over anterior abdomen Extremities: No edema appreciated Skin: Warm and dry MSK: 5/5 strength 4/4 extremities at major joints of the shoulder, hip Neuro: Cranial nerves II-XII grossly intact, speech without slur, facial expressions equal and symmetric Psych: Appropriate mood, affect, and responses to questions; good insight and judgment Lab and Diagnostics Result Diagram: 06/27/17192806/27/171928 Assessment & Plan Mr. Chang is a pleasant 62-year-old gentleman with a recent history of ruptured AAA status post open aortobifemoral bypass, chronic hypoxemic respiratory failure secondary to advancing COPD with emphysematous changes, and hypertension, presented to [facility] via EMS from [facility] with a three-day history of heart palpitations, increased heart rate, and general feeling of malaise, without any associated fever, chills, or abdominal pain. Initial imaging included CT abdomen and pelvis with contrast noted stable AAA repair in no associated large hematomas, pulmonary CTA was also completed secondary to increased d-dimer, which did not reveal any acute occlusive PEs, but did reveal a 1.8 cm ill-defined nodular opacity in the left upper lobe. Patient was admitted for evaluation and treatment of suspected pneumonia versus acute exacerbation of COPD. - Hospital day one Sepsis, acute, present on admission, under evaluation - May be secondary to PNA; pt reports recent h/o PNA, and resides at [facility] - On admit: P119, R23 - Will obtain lactic; BCx obtained and pending - Treat underlying causes: current eval for PNA - Current abx: zosyn,vanco + azithro Suspected PNA, acute, present on admission, under evaluation - Patient reports recent history of pneumonia, and many sick contacts at skilled facility - Admit: WBC 5.2 with no shift; patient denies any increase in cough or sputum production; PCT 0.12 - CTA, pulmonary: No acute occlusive PE noted, ill-defined nodular opacity in left upper lobe measuring approximately 1.8 cm - DDx: Ongoing pneumonia, new development of pneumonia, resolving infection, malignancy - We will complete pneumonia workup: BCx, Legionella Ur, strep pneu Ur, resp PCR , PCT, MRSA screen; patient is high risk for infection - ABx: zosyn, azithro, vanco; will likely need to tailor in am Suspected acute exacerbation COPD, present on admission, under evaluation - Less likely, this patient does not report increase in cough, sputum production ; denies any increase in oxygen supplementation from - in ED: Solu-Medrol 125mg x1, will continue 60 mg q8h; assess for improvement, consider transition to po in morning - Azithromycin as noted above for anti-inflammatory effects - Duoneb qidwa + accuneb q2h prn Tachycardia, chronicity unknown, present on admission, under evaluation - Pt reports x3d hx prior to admission - May be indicative of underlying infection, and/or COPD exacerbation, anxiety, or pain; patient appears euvolemic at time of admission; PE was ruled out via CTA - On admit: Hemoglobin 13.4 - Treat underlying cause; use of nebs and steroids may exacerbate increased HR - Record review shows previous documentation throughout 2015, 2014 HR: 113, 108 , 103 - Tele - EKG prn CP - EKG in am - Repeat troponin - Pt may need change of BP medications to include beta blockade, such as propranolol, which may also help with anxiety reduction Abnormal CT finding, chronicity unknown, present on admission, under evaluation - CTA completed 06/28/2017: Left upper lobe lesion measuring 1.8 cm described as an ill-defined nodular opacity - DDx: Resolving pneumonia, ongoing pneumonia, early stage pneumonia, malignancy , possibility of other pulmonology culprits such as TB - We will await records from [facility]; consider additional studies such as QuantiFERON, if necessary - Pt does have h/o smoking and extensive COPD, malignancy is also a possibility in this scenario Elevated d-dimer, chronicity unknown, present on admission, under evaluation - On admit: D-dimer 1.62; pt high risk for PE secondary to recent surgery, - CTA did not reveal any acute occlusive PE; awaiting final reading - DDx: recent surgeries/interventions, [place], infection, inflammation, malignancy - No indication for heparin gtt History of AAA s/p aortobifemoral bypass open repair, presumed stable - Records request placed to [facility] Microcytic hypochromic anemia, chronicity unknown, present on admission, monitor - On admit: Hemoglobin 13.4, hematocrit 40.5, MCV 80.4, MCH 26.6 - Likely secondary to iron deficiency, and/or extensive recent interventions and procedures - Continue to monitor at this time Hypertension, chronic, presumed stable - Home medications listed as amlodipine 10 mg daily, ASA 81mg daily; will continue when med rec completed Hyperlipidemia, chronic, presumed stable - Home medication listed as atorvastatin 40 mg daily; will continue when med rec completed PRN fever, bowel, nausea, pain DVT: SCDs Diet: general GI: H2B IVF: None Code: FULL CODE Patient is admitted under inpatient status with expected length of stay greater than 2 midnights due to severity of presenting symptoms, risk of adverse event, and complexity of treatment plan. Pain Evaluation: Adequate Pain Control GI Prophylaxis: H2 benton VTE Prophylaxis: SCDs Resuscitation Status: CPR: Attempt Resuscitation Attending Statement The patient was seen and examined together with Dr. Khalil on 06/28 and I agree with the history, exam and plan as outlined in the note above. Smita Khalil DO Jun 28, 2017 00:40 Enrique Pham MD Jun 28, 2017 06:57
[2017-06-28] MEDS: Albuterol 2.5 mg/3 mL Inhalation Solution NEB PRN ×4 (01:20→18:36)
[2017-06-28 01:48] LABS: APPEARANCE,URINE CLEAR (CLEAR,HAZY); COLOR,URINE STRAW (YELLOW); OCCULT BLOOD,URINE TRACE (NEGATIVE); UROBILINOGEN,URINE NORMAL (NORMAL)
[2017-06-28] MEDS ORDERED: FLUT12AE6 IH (01:59)
[2017-06-28] MEDS ORDERED: IPRA3AMP IH (01:59)
[2017-06-28] MEDS ORDERED: AMLO10TA3 PO (02:19)
[2017-06-28] MEDS ORDERED: LIP40 PO (02:20)
[2017-06-28] MEDS ORDERED: ROFL500T PO (02:21)
[2017-06-28] MEDS ORDERED: levoFLOXacin Dose Per Pharmacist XX ONE (02:30)
[2017-06-28] MEDS ORDERED: SIME80TA53 PO (02:30)
[2017-06-28] MEDS ORDERED: Vancomycin Inj 1,250 MG in 0.9% Sodium Chloride 250 ML IV ONE (02:40)
--- NOTE | 2017-06-28 03:47 | PCM.CONPHA ---
Subjective Date of Service: Jun 28, 2017 Requesting Provider: Smita Khalil DO Palpitations Reason for Pharmacy Consult: Vancomycin Dosing Objective Vital Signs Date Time Temp Pulse Resp B/P Pulse Ox O2 Delivery O2 Flow Rate FiO2 06/28/17 02:07 Supplement Oxygen 06/28/17 02:07 119 06/28/17 01:48 118 06/28/17 01:33 36.7 122 21 139/86 98 Nasal Cannula 3.00 06/28/17 01:21 125 22 95 Nasal Cannula 2.00 06/27/17 23:57 119 23 143/73 94 Nasal Cannula 4 06/27/17 22:57 110 18 98 Nasal Cannula 4 06/27/17 21:26 112 20 148/80 98 Nasal Cannula 4 06/27/17 20:22 115 18 97 Nasal Cannula 4 06/27/17 19:35 36.6 122 27 154/98 96 Nasal Cannula 3 Intake and Output 06/26/17 06/27/17 06/28/17 00:00 00:00 00:00 Intake Total 1000 ml Balance 1000 ml Weight (Kilograms): 64.600 Height (Feet): 5 Height (Inches): 7.50 Test 06/27/17 19:29 06/28/17 00:00 06/28/17 01:26 White Blood Count 5.2th/mm3 (3.8-10.1) Red Blood Count 5.04mil/mm3 (4.40-5.80) Hemoglobin 13.4g/dL (13.8-17.2) Hematocrit 40.5% (41.0-50.0) Mean Corpuscular Volume 80.4fL (81-100) Mean Corpuscular Hemoglobin 26.6pg (27.0-35.0) Mean Corpuscular Hemoglobin Concent 33.1% (32.0-37.0) Red Cell Distribution Width 14.2% (12.3-15.4) Platelet Count 275bil/L (150-400) Neutrophils (%) (Auto) 73.0% (40-74) Lymphocytes (%) (Auto) 18.1% (14-46) Monocytes (%) (Auto) 7.0% (4-12) Eosinophils (%) (Auto) 1.7% (0-5) Basophils (%) (Auto) 0.2% (0-3) Prothrombin Time 11.0sec (8.1-12.5) Prothromb Time International Ratio 1.03ratio D-Dimer 1.62mg/L FEU (<0.50) Sodium Level 135mEq/L (134-144) Potassium Level 3.4mEq/L (3.5-5.2) Chloride Level 95mEq/L (97-108) Carbon Dioxide Level 25mmol/L (18-29) Blood Urea Nitrogen 13mg/dL (8-27) Creatinine 1.04mg/dL (0.76-1.27) Estimat Glomerular Filtration Rate 77mL/min (>59) Glucose Level 126mg/dL (60-99) Calcium Level 9.0mg/dL (8.5-10.1) Magnesium Level 1.7mg/dL (1.6-2.6) Total Bilirubin 0.5mg/dL (0.0-1.2) Aspartate Amino Transf (AST/SGOT) 14U/L (0-50) Alanine Aminotransferase (ALT/SGPT) 15U/L (0-44) Alkaline Phosphatase 121U/L (25-160) Troponin T < 0.010ug/L (0.0-0.011) Total Protein 7.5g/dL (6.4-8.4) Albumin 3.7g/dL (3.4-5.0) Procalcitonin 0.12ng/mL (0.00-0.08) Hold Welsh Top Tube Received (Received) Urine Color Straw (YELLOW) Urine Appearance Clear (CLEAR,HAZY) Urine pH 7.0 (5.0-8.0) Urine Specific [place] 1.034 (1.003-1.035) Urine Protein Negativemg/dL (NEG,TRACE) Urine Glucose (UA) Negativemg/dL (NEGATIVE) Urine Ketones Negativemg/dL (NEGATIVE) Urine Occult Blood Trace (NEGATIVE) Urine Nitrite Negative (NEGATIVE) Urine Bilirubin Negative (NEGATIVE) Urine Urobilinogen Normalmg/dL (NORMAL) Urine Leukocyte Esterase Negative (NEGATIVE) Urine RBC 3-10/hpf (0-2) Urine WBC 0-5/hpf (0-5) Urine Epithelial Cells Occasional/hpf (NONE-MOD) Urine Crystals None seen (NONE SEEN) Urine Bacteria Few/hpf (NONE-FEW) Urine Hyaline Casts None/lpf (NONE) Urine Granular Casts None seen (NONE SEEN) Urine Waxy Casts None seen (NONE SEEN) Urine Red Blood Cell Casts None seen (NONE SEEN) Urine White Blood Cell Casts None seen (NONE SEEN) Urine Mucus None seen (None Seen) Urine Trichomonas None seen (NONE SEEN) Urine Yeast None (NONE SEEN) Urinalysis Comment None Urine Culture Reflexed Not indicated Hold Urine Received (Received) Lactic Acid Level 1.8mmol/L (0.4-2.0) Assessment/Plan Assessment/Plan A: * Vancomycin dosing by pharmacy for 62 y/o man with suspected pneumonia * He is also being started on Zosyn and azithromycin * Estimated CrCl for the patient is 67 mL/min (Cockcroft & Gault) * Estimated vancomycin half-life is 12 hours and estimated volume of distribution is 45 liters P: * Give one vancomycin 1250 mg IV loading dose * Continue with vancomycin 750 mg IV every 12 hours * Target a vancomycin trough range of 15 - 20 mcg/mL * Draw a trough level prior to the fourth dose Thank you. Pharmacy will continue to follow this patient. Chitra Nelson Jun 28, 2017 03:47
[2017-06-28 04:10] LABS: BASOPHILS % (AUTO) 0.3 % (0-3); EOSINOPHILS % (AUTO) 0 % (0-5); Mean Corpuscular Hemoglobin 26.5 pg (27.0-35.0); Mean Corpuscular Volume 81.8 fL (81-100); NEUTROPHILS % (AUTO) 93.1 % (40-74); Platelet Count 275 bil/L (150-400)
[2017-06-28 04:50] LABS: TROPONIN T 0.01 ug/L (0.0-0.011)
[2017-06-28] MEDS ORDERED: Piperacillin-Tazo 3.375 Gm Inj 3.375 GM in Dextrose 5% Minibag Plus 50 ML IV SCH (05:00)
[2017-06-28 05:04] LABS: Magnesium 1.6 mg/dL (1.6-2.6)
--- NOTE | 2017-06-28 05:19 | NUR ---
Admission Pt admitted to PCC room 2018 from the ED. Pt was able to stand and transfer self to the hospital bed from the ED [facility]. Pt quickly became short of breath requiring a PRN nebulizer treatment.Neb had good effect. Pt at his baseline of 3L NC. Respiratory viral swab and MRSA swab collected and sent to lab. Admission assessments including med rec completed. Med rec completed via interview with patient, external med history and eMar from [facility]. Skin check performed and no areas of concern noted. Pt given Vancomycin and Zosyn within a few hours of arriving to the floor per MD order.
--- NOTE | 2017-06-28 07:43 | DRSVH ---
PROCEDURE: CT ABDOMEN AND PELVIS WITH CONTRAST ([id number]) INDICATIONS: tachycardia, pleuritic pain, recent aaa repair TECHNIQUE: After the administration of intravenous contrast, 5 mm thick sections acquired from the diaphragm to the symphysis. 5 mm coronal and sagittal reformats were acquired. For radiation dose reduction, the following was used: automated exposure control, adjustment of mA and/or kV according to patient rukhsana fairchild. COMPARISON: [facility], CT, CT ABD PELVIS W CON, 06/11/2017, 17:53. FINDINGS: Image quality: Excellent. ABDOMEN: Lung bases: Lung bases show evidence of COPD and subsegmental atelectasis. Solid organs: Liver and spleen are normal in size and enhancement. Gallbladder is within normal mercado its. Biliary system is non dilated. Pancreas enhances normally. No adrenal nodules. Kidneys demon strate normal size and enhancement, without hydronephrosis. This cortex of the right kidney anteriorl y and laterally. Peritoneum and bowel: Bowel loops demonstrate normal wall thickness and caliber. No free fluid or a ir. Nodes and vessels: No retroperitoneal or mesenteric adenopathy by size criteria. Aorta has an aneury sm in the past repaired with an aorto by femoral graft, open repair. The appearance compared to is unchanged. Noted is old metallic stenting in the left common iliac artery the amount of soft ti ssue edema around the graft is unchanged with a planes are better defined no evidence for leakage is identified. The aneurysm extends to just inferior to the renal arteries. But is unchanged. If leakage is of concern a study dedicated to the abdominal aorta without and with contrast would be needed. Miscellaneous: No ventral hernias. PELVIS: Genitourinary: Bladder wall thickness is mildly increased from normal. There is moderate prostate en largement. Miscellaneous: No inguinal hernias or adenopathy. Bones: No suspicious bony lesions. No vertebral body compression fractures. IMPRESSION: Tissue planes around the surgical site, the abdominal aortic aneurysm are slightly better defined than previously. No evidence for leakage is appreciated on this study. No change in the appe arance of the aorta are repair is seen. There has been loss of cortex of the anterior aspect of the right kidney as noted previously and this is unchanged. The left kidney is normal in appearance. COPD changes at the lung bases. No acute edematous changes or fluid collections in the abdomen and pelvis. If leakage of the aneurysm repair of the aorta is suspected then a dedicated aortic study with CT wit hout and with contrast would be needed. Dictated by: Kael Velazquez M.D. on 06/28/2017 at 7:26 this report corresponds to the findings of the preliminary NSR report. Approved by: Kael Velazquez M.D. on 06/28/2017 at 7:42
[2017-06-28] MEDS: Albuterol-Ipratropium 3 mL Inhalation Solution NEB SCH ×4 (07:58→20:52)
--- NOTE | 2017-06-28 08:01 | DRSVH ---
PROCEDURE: CT ANGIO CHEST PULMONARY EMBOLISM ([id number]) INDICATIONS: tachycardia, pleuritic pain, recent aaa repair TECHNIQUE: After the administration of intravenous contrast, 2 mm thick sections acquired from the pulmonary api gabriel to the posterior costophrenic angles. 3-dimensional maximum intensity projection (MIP) coronal a nd sagittal reformats were then acquired through the thorax. For radiation dose reduction, the follo wing was used: automated exposure control, adjustment of mA and/or kV according to patient size. COMPARISON: [facility], CR, XR CHEST 1VW (PORTABLE), 06/27/2017, 19:29. FINDINGS: Image quality: Good Pulmonary arteries: Pulmonary arteries are normal in size, and demonstrate no intraluminal filling d efects to suggest central pulmonary embolism. Lungs and pleura: Prominent COPD changes are present in the lungs. In the posteroinferior aspect of t he left upper lobe is in irregular nodular density measuring approximately 18 x 11 mm x 10 mm in size , not present on previous CT scan in October of 2014. It would be suspicious for a lung primary cance r. In the posterior gutter of the left lung series 5 image 52 and series 6 image 37 is an area of tib ia consolidation or atelectasis less likely malignancy measuring approximately 3.8 x 2.2 x 1.9 cm. No pleural effusions or pneumothorax. There is some crowding of the markings in the left chest compared to older studies and the appearance would suggest some infiltrate in the left lower lobe. Mediastinum: Heart size is normal, without pericardial effusion. No mediastinal or hilar adenopathy . Thoracic aorta is normal in caliber and enhancement. Atherosclerotic changes are present throughou t the aorta. Esophagus is normal in caliber, with a small hiatal hernia. Bones and chest wall: No suspicious bony lesions. Ribs and thoracic spine appear intact throughout. Thyroid gland suggest partial left thyroidectomy. No axillary or supraclavicular adenopathy. Abdomen: Visualized upper abdominal solid organs appear normal in the early arterial phase of enhanc ement. IMPRESSION: 1. Changes of emphysema throughout the lungs. 2. Changes of increased markings in the left lower lobe suspicious for minimal infiltrate/pneumonia. 3. 18 mm nodular density posteroinferior left upper lobe suspicious for lung primary. 4. Probable atelectasis and consolidation in left lower lobe versus less likely second mass lesion. 5. CT followup in 3 months to evaluate for the left lower lobe and left upper lobe lesion suspicious for lung primary is suggested previous Fleischner Society criteria for SOLID lung nodule followup. Nodule size (mm)Low-risk patientHigh-risk [id number] follow-up neededFollow-up at 12 mo; if no iyer e, no further follow-up>[id number] CT at 12 mo; if no change, no further follow-up needed.Initial f ollow-up CT at 6-12 mo, then 18-24 mo if no change. >6-8Initial follow-up CT at 6-12 mo, then 18-24 mo if no change. Initial follow-up CT at 3-6 mo, then 9-12 mo and 24 mo if no change. >8Follow-up CT at 3, 9, 24 mo. Or PET and/or biopsy.Same as for low-risk pts. 6. small hiatal hernia. Dictated by: Kael Velazquez M.D. on 06/28/2017 at 7:42 Approved by: Kael Velazquez M.D. on 06/28/2017 at 8:00
[2017-06-28] MEDS ORDERED: Vancomycin Dose per Pharmacist XX SCH (08:30)
[2017-06-28] MEDS ORDERED: MethylprednisoLONE Sodium Succinate 62.5 mg/mL 2 mL Inj IVPUSH SCH (08:30)
[2017-06-28] MEDS ORDERED: Azithromycin Inj 500 MG in Dextrose 5% w/Vial Mate 250 ML IV SCH (08:30)
[2017-06-28] MEDS ORDERED: Fluticasone-Salmeterol 500-50 Inhaler INHALATION SCH (09:20)
--- NOTE | 2017-06-28 10:42 | NUR ---
INTERMEDIATE TRANSFER : Gave access to [facility] and called and spoke with Levi, patient comes from there with to follow. They will accept patient back when ready. Updated CLINIC PHYSICIAN Addendum: 06/28/17 at 1058 by NOEMI ROSA Spoke with Levi again and JOSE is being faxed to Case Management office.
--- NOTE | 2017-06-28 13:25 | DRSVH ---
[facility] [address] [facility] [facility] [place] [address] Echocardiogram Report Name: RAMIN MARSHALL SStudy Date: 06/28/2017 Height: 68 in Hospital Exam Location: [facility] Weight: 142 lb Gender: Male BSA: 1.8 m2 : 1955 Age: 62 yrs BP: 137/ 66 mmHg Reason For Study: SINUS TACHYCARDIA Ordering Physician: HOSPITALIST [facility] Performed By: Lizzie Holloway Referring Physician: Mae Mena Interpretation Summary The left ventricle is normal in size, wall thickness, and systolic function without any focal wall motion abnormalities. The ejection fraction is estimated to be 55-60%. There has been no significant change since the previous study. Diastolic function could not be accurately assessed due to tachycardia. The right ventricle is normal in size, thickness and function. Pulmonary artery pressures cannot be estimated because of the lack of a measurable TR jet velocity. The left atrial size is normal. Right atrial size is normal. There is mild mitral regurgitation. Compared to the prior echo study, there has been a decrease in the severity of mitral regurgitation. There is mild to moderate aortic regurgitation. This is unchanged compared to the previous study. There is no other significant valvular heart disease. The aortic root is normal size. Procedure: A two-dimensional transthoracic echocardiogram with color flow and Doppler was performed. The study quality was technically adequate. Comparison is made with the echocardiogram of 04/12/16. The patient was in sinus tachycardia with heart rates between 122 to 129 bpm during the exam. Left Ventricle: The left ventricle is normal in size, wall thickness, and systolic function without any focal wall motion abnormalities. The ejection fraction is estimated to be 55-60%. There has been no significant change since the previous study. Diastolic function could not be accurately assessed due to tachycardia. Right Ventricle: The right ventricle is normal in size, thickness and function. Atria: The left atrial size is normal. Right atrial size is normal. There is no Doppler evidence for an interatrial shunt. Mitral Valve: The mitral valve leaflets appear normal. There is no evidence of stenosis, fluttering, or prolapse. There is mild mitral regurgitation. Compared to the prior echo study, there has been a decrease in the severity of mitral regurgitation. Aortic Valve: The aortic valve is normal in structure and function. There is mild to moderate aortic regurgitation. This is unchanged compared to the previous study. Tricuspid Valve: The tricuspid valve is normal. There is a trace or physiologic amount of tricuspid regurgitation. Pulmonary artery pressures cannot be estimated because of the lack of a measurable TR jet velocity. Pulmonic Valve: The pulmonic valve leaflets are thin and pliable; valve motion is normal. There is a trace or physiologic amount of pulmonic regurgitation. There is no other significant valvular heart disease. Great Vessels: The aortic root is normal size. The ascending aorta is normal in size. The aortic arch could not be visualized. The pulmonary artery is not well visualized, but is probably normal size. The IVC is dilated (diameter is greater than 2.1 cm) yet it collapses greater than 50% with a sniff. This suggests a right atrial pressure of 8 mm Hg. Pericardium/ Pleura There is no pericardial effusion. There is no pleural effusion. MMode/2D Measurements & Calculations LVIDd: 4.9 cm RA long axis LVOT diam LVIDs: 3.2 cm LA A2 area: 12.1 cm FS: 34.5 % LA A4 area: 12.9 cm RA area AoV Opening EPSS: 0.42 cm LA length (vol): 4.1 cm IVSd: 0.89 cm LA vol: 32.4 ml : 13.9 cm Ao root diam LVPWd: 0.86 cm LA vol index RA vol : 37.4 ml asc Aorta RA Diam: 2.7 cm IVC diam: 2.6 cm : 21.1 mm2 LV zaldivar. diameter/BSA LV sys. diameter/BSA RVD1 (basal) RVD2 (mid) (cm/m^2): 2.8 (cm/m^2): 1.8 : 2.3 cm Doppler Measurements & Calculations Ao V2 max MV E max marvin MV E/A: 0.93 PA V2 max : 147.1 cm/sec : 97.6 cm/sec Med Peak E' Marvin : 100.2 cm/sec Ao max PG MV A max marvin PA mean P.1 mmHg : 8.7 mmHg : 104.7 cm/sec E/E' med: 5.5 PA Accel Time Ao mean PG Lat Peak E' Marvin : 0.05 sec LVOT Max Marvin E/E' lat: 6.5 : 116.1 cm/sec E/e' average: 6.0 BLANCA(I,D): 3.2 cm sev ratio AI P1/2t : 279.4 msec AI dec slope : 472.1 cm/s2c Ao V2 mean LV V1 max PG PA V2 mean BLANCA indexed to BSA : 108.4 cm/sec : 66.6 cm/sec (cm^2/m^2): 1.8 Ao V2 VTI: 22.4 cm LV V1 VTI BLANCA(V,D): 3.2 cm2 : 17.6 cm Reading Physician:GRACE
[2017-06-28] MEDS ORDERED: Albuterol-Ipratropium 3 mL Inhalation Solution INHALATION SCH (14:30)
--- NOTE | 2017-06-28 14:59 | PCM.PNMED ---
Subjective Date of Service Jun 28, 2017 Subjective Pt states that he has not had a cough or fevers. Does not have any specific complaints with the exception of his rapid heart rate. Denies chest pain, abdominal pain. Vital signs overnight and through the day and shown persistent tachycardia, afebrile with normal blood pressure. Pro-calcitonin very mildly elevated with a normal white count. Exam Vital Signs Vital Sign - Last Date Time Temp Pulse Resp B/P Pulse Ox O2 Delivery O2 Flow Rate FiO2 06/28/17 07:50 114 20 93 Nasal Cannula 2.00 06/28/17 03:47 36.8 129/75 Intake and Output 06/27/17 06/27/17 06/28/17 Cumulative From/Thru 15:00 23:00 07:00 06/27/17 19:35 - 06/28/17 01:36 Intake Total 1000 ml 1000 ml Balance 1000 ml 1000 ml IV Total 1000 ml 1000 ml Exam General: Awake and alert in no acute distress, well-developed, well-nourished, appropriately interactive HEENT: Normocephalic, atraumatic. External ears without defect. Pupils equal, round, and reactive to light and accommodation. Oropharynx free of erythema and cobble stoning with moist mucosa. Neck: Supple with full range of motion. No jugular venous distension. Cardiovascular: Tachycardic rate with regular rhythm, no murmurs appreciated Pulmonary: Decreased air movement across all lung contreras, expiratory wheezes bilateral upper lung contreras. Barrel chest Abdomen: Soft, nontender, nondistended. No pulsatile masses appreciated, healed scar over her anterior abdomen. Extremities: No clubbing, cyanosis, edema Skin: Normal temperature, turgor, and texture Neurological: Cranial nerves grossly intact. Psychiatric: Normal mood and affect. Alert and oriented to person, place, and time. IVs and Medications Medications Reviewed: Medications were reviewed in detail Lab and Diagnostics Result Diagram: 06/28/17 0325 06/28/17 032 X-Rays, CTs and MRIs . X-RAY CHEST ONE VIEW, PORTABLE IMPRESSION: 1. Severe emphysematous change with overlying aspiration/infection or pulmonary edema. Dictated by: Maia Tamez M.D. on 06/27/2017 CT ANGIO CHEST PULMONARY EMBOLISM IMPRESSION: 1. Changes of emphysema throughout the lungs. 2. Changes of increased markings in the left lower lobe suspicious for minimal infiltrate/pneumonia. 3. 18 mm nodular density posteroinferior left upper lobe suspicious for lung primary. 4. Probable atelectasis and consolidation in left lower lobe versus less likely second mass lesion. 5. CT followup in 3 months to evaluate for the left lower lobe and left upper lobe lesion suspicious for lung primary is suggested previous Fleischner Society criteria for SOLID lung nodule followup. Nodule size (mm)Low-risk patientHigh-risk [id number] follow-up neededFollow-up at 12 mo; if no change, no further follow-up>[id number] CT at 12 mo; if no change, no further follow-up needed.Initial follow-up CT at 6-12 mo, then 18-24 mo if no change. >6-8Initial follow-up CT at 6-12 mo, then 18-24 mo if no change. Initial follow-up CT at 3-6 mo, then 9-12 mo and 24 mo if no change. > 8Follow-up CT at 3, 9, 24 mo. Or PET and/or biopsy.Same as for low-risk pts. 6. small hiatal hernia. Dictated by: Kael Velazquez M.D. on 06/28/2017 CT ABDOMEN AND PELVIS WITH CONTRAST IMPRESSION: Tissue planes around the surgical site, the abdominal aortic aneurysm are slightly better defined than previously. No evidence for leakage is appreciated on this study. No change in the appearance of the aorta are repair is seen. There has been loss of cortex of the anterior aspect of the right kidney as noted previously and this is unchanged. The left kidney is normal in appearance. COPD changes at the lung bases. No acute edematous changes or fluid collections in the abdomen and pelvis. If leakage of the aneurysm repair of the aorta is suspected then a dedicated aortic study with CT without and with contrast would be needed. Dictated by: Kael Velazquez M.D. on 06/28/2017 Cardiac Echo Impressions Echocardiogram Report Interpretation Summary: The left ventricle is normal in size, wall thickness, and systolic function without any focal wall motion abnormalities. The ejection fraction is estimated to be 55-60%. There has been no significant change since the previous study. Diastolic function could not be accurately assessed due to tachycardia. The right ventricle is normal in size, thickness and function. Pulmonary artery pressures cannot be estimated because of the lack of a measurable TR jet velocity. The left atrial size is normal. Right atrial size is normal. There is mild mitral regurgitation. Compared to the prior echo study, there has been a decrease in the severity of mitral regurgitation. There is mild to moderate aortic regurgitation. This is unchanged compared to the previous study. There is no other significant valvular heart disease. The aortic root is normal size. Assessment & Plan Mr. 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 Hospital day 2 Suspected acute exacerbation COPD, present on admission, ongoing -Does not report increase in cough or oxygen needs. Denies sputum production -DC Solu-Medrol, start oral prednisone 40 mg daily -Continue azithromycin -Duoneb qidwa + accuneb q2h prn Tachycardia, chronicity unknown, present on admission, under evaluation - Pt reports x3d hx prior to admission, with history of tachycardia during previous hospital admissions - May be indicative of underlying infection, and/or COPD exacerbation, anxiety, or pain; patient appears euvolemic at time of admission; PE was ruled out via CTA - Titrate down steroid use, patient continues to require nebulizer treatments - Hemoglobin normal, troponin negative - Continue Tele, EKG when necessary - Thyroid panel pending - Echo pending - Suspected PNA, acute, present on admission, likely - Patient reports recent history of pneumonia, and many sick contacts at skilled facility - Remains afebrile with no white count or increase in peripheral calcitonin. Patient denies any increase in cough or sputum production - CTA showed no PE, did show ill-defined nodular opacity left upper lobe lung field measuring 1.8 cm - DDx: Ongoing pneumonia, new development of pneumonia, resolving infection, malignancy - Appropriate cultures and serologies pending - Discontinue antibiotics Zosyn and vancomycin Abnormal CT finding, chronicity unknown, present on admission, under evaluation - CTA completed 06/28/2017: Left upper lobe lesion measuring 1.8 cm described as an ill-defined nodular opacity - DDx: Resolving pneumonia, ongoing pneumonia, early stage pneumonia, malignancy , possibility of other pulmonology culprits such as TB - We will await records from [facility]; consider additional studies such as QuantiFERON, if necessary - Pt does have h/o smoking and extensive COPD, malignancy is also a possibility in this scenario Elevated d-dimer, chronicity unknown, present on admission, under evaluation - On admit: D-dimer 1.62; pt high risk for PE secondary to recent surgery, - CTA did not reveal any acute occlusive PE; awaiting final reading - DDx: recent surgeries/interventions, ME, infection, inflammation, malignancy - No indication for heparin gtt History of AAA s/p aortobifemoral bypass open repair, presumed stable - Records request placed to [facility] Microcytic hypochromic anemia, chronicity unknown, present on admission, monitor - On admit: Hemoglobin 13.4, hematocrit 40.5, MCV 80.4, MCH 26.6 - Likely secondary to iron deficiency, and/or extensive recent interventions and procedures - Continue to monitor at this time Hypertension, chronic, presumed stable - Home medications listed as amlodipine 10 mg daily, ASA 81mg daily; - Held amlodipine Hyperlipidemia, chronic, presumed stable - Home medication listed as atorvastatin 40 mg daily; will continue when med rec completed Sepsis, acute, present on admission, resolved - No longer meets sepsis criteria - On admit: P119, R23, remains tachycardic though respiratory rate has improved - Lactic acid normal - Appropriate cultures and serologies pending - No white count, pro-calcitonin essentially negative, chest x-ray does not show acute pneumonia - Discontinued Zosyn and Vanco, continued azithromycin for COPD exacerbation PRN fever, bowel, nausea, pain DVT: SCDs Diet: general GI: H2B IVF: None Code: FULL CODE Patient is admitted under inpatient status with expected length of stay greater than 2 midnights due to severity of presenting symptoms, risk of adverse event, and complexity of treatment plan. GI Prophylaxis: H2 benton VTE Prophylaxis: SCDs Resuscitation Status: CPR: Attempt Resuscitation Time spent 30 minutes Attending Statement Patient has been seen and examined by myself with emergency medical tech and agree with above history, physical, assessment and plan. SHAUNA ESPINOSA DO Jun 28, 2017 09:20 Deanna Zabala MD Jun 28, 2017 18:44
--- NOTE | 2017-06-28 15:44 | NUR ---
transfer to room 2008 Pt c/o room 2018 being too hot. asking to be transferred to room. Pt transferred to room [address] scan with all belongings. Ongoing care.
--- NOTE | 2017-06-28 16:16 | DRSVH ---
PROCEDURE: CT ANGIO ABDOMEN PELVIS INDICATIONS: aortic anuerysm repair TECHNIQUE: Non-contrast 3 mm thick sections acquired from the diaphragm to the symphysis. After the administrat ion of intravenous contrast, 3 mm thick sections acquired from the diaphragm to the symphysis during the arterial and venous phases. 3-dimensional maximum intensity projection (MIP) reformats were acqui red of the arterial phase images, and/or 3-dimensional volume rendering reformats. For radiation dos e reduction, the following was used: automated exposure control. COMPARISON: [facility], CT, CT ABD PELVIS W CON, 05/12/2017, 14:55. [facility], CT, CT ABD PELVIS W CON, 06/11/2017, 17:53. [facility], CT, CT ABD PELVIS W CON, 06/27, 22:48. FINDINGS: Image quality: Excellent. Vascular structures: Postoperative changes are present related to an infrarenal aortobifemoral bypass procedure. The integrity of the graft appears intact without evidence of a leak. The aneurysm sac at its largest dimension measures approximately 4.2 x 4.4 cm (image 49, series 11), previously measur ing 4.6 x 4.6 cm at a similar level on 06/11/17. The precontrast images demonstrate scattered calcifi cations and postoperative clips. There is also an endovascular graft evident within the nulato left common iliac artery. However, and no areas of high attenuation within the aneurysm sac are evident t o suggest a hematoma. On the postcontrast images there are no areas of increased attenuation within the aneurysm sac to suggest a focal endovascular leak. There continues to be irregularity at the pro ximal anastomosis of the nulato lower abdominal aorta and at the aortobifemoral graft. This is simil ar to the previous study. Retrograde flow appears to be present within it the nulato right external iliac artery which subsequently extends into the right internal iliac artery. Flow within the left e xternal iliac artery is also identified. However, its origin is unclear on the basis of this examina tion, but does not results from retrograde flow within it the left internal iliac artery. Imaged por tions of the femoral arteries are within normal limits. The distal anastomotic sites are patent and otherwise unremarkable bilaterally. No periaortic hematomas are identified. Atherosclerotic changes of the lower thoracic and upper abdominal aorta is again evident. The celiac artery and superior mesenteric artery have a similar appearance to the prior study. There is modera te focal enlargement of the celiac artery, which may be related to post stenotic dilatation from foca l narrowing at its origin and subsequent mass effect of the vessel related to the diaphragmatic rand within this region. 2 right renal arteries are evident. The dominant renal artery demonstrates erick yed filling with a high-grade area of narrowing is suspected at its origin, which may be related to p revious surgery or prior aortic rupture. This appearance is similar to the previous exam, but is new since 05/12/17. This appearance is felt to be resulting in differential of enhancement of the right kidney. There are 2 left renal arteries. Inferior mesenteric artery is not seen. Extravascular structures: Bilateral posterior diaphragmatic hernias are identified. There is severe centrilobular emphysematous changes identified within the lungs with mild areas of scarring within t he right middle lobe and posterior bilateral lower lobes. No pleural effusions are evident. The hea rt is normal in size without a pericardial effusion. The liver is grossly unremarkable. The spleen is within normal limits for size. The adrenals and pancreas are unremarkable. Heterogeneous enhance ment of the right kidney is identified with decreased enhancement and cortical thinning involving the entire lateral aspect of the right kidney. On the precontrast images areas of increased attenuation involving the lateral margin of the right kidney is evident with a small amount of high attenuation urine present within both kidneys, suggesting delayed. Left kidney demonstrates normal enhancement c haracteristics. No perinephric edema is identified. There is a small hiatal hernia. Otherwise, the stomach, duodenum and remainder of the small bowel loops are nondilated. Moderate residual stool is identified throughout the colon. Mild prominence of the distal colonic wall is evident involving th e descending colon and sigmoid colon. There is no complete bowel obstruction. No free fluid, locula jayce fluid collection or free air is evident. No retroperitoneal or mesenteric lymphadenopathy is oriana ntified. However, there are multiple small retroperitoneal/periaortic lymph nodes noted. The bone m ineralization is diffusely decreased. There are no acute fractures or suspicious osseous lesions of the osseous structures of the pelvis or imaged spine. High attenuation fluid is seen within the urin arianna bladder, which is felt to represent contrast from the CT dated 06/27/17. The prostate is somewhat enlarged and heterogeneous with corresponding enlargement of the seminal vesicles. IMPRESSION: 1. Aortobifemoral graft is intact without evidence of an endovascular leak. The aneurysm sac has no t increased in size. Irregularity at the proximal anastomosis is unchanged since previous exams. 2. Abnormal enhancement of the lateral margin of the entire right kidney with delayed excretion of c ontrast is felt to be vascular in origin, given the small size of the dominant (lower) right renal ar kalyan. This appearance is similar to the exam dated 06/11/17, but is new since 05/12/17, likely related to the acute aortic rupture and/or aortic surgery. The left kidney is unremarkable. 3. Delayed excretion of contrast is suggestive of renal disease. Please correlate clinically to exc lude acute renal failure. 4. Small hiatal hernia. No bowel obstruction. 5. Nonspecific prominence of the wall of the distal colon probably is related to incomplete distenti on. Please correlate clinically to exclude colitis. 6. Centrilobular emphysema the lung bases. Dictated by: Nehemias Felix M.D. on 06/28/2017 at 14:55 Approved by: Nehemias Felix M.D. on 06/28/2017 at 15:15
--- NOTE | 2017-06-28 17:22 | NUR ---
Social Work: Initial Assessment/Multidisciplinary Rounds D: Per EMR review, pt is a 62 year old male admitted for B/L Pneuonia, Acute Care COPD. Per pt, pt is Faustino SEGAL with [facility] and no LTC or VA benefits. PCP is James Blackburn MD. NOK is Jolie Charlene, dtr, . Advanced directives not completed- information provided. Readmit score not entered at this time. Pt discussed in Multidisciplinary rounds. Capacity for self care discussed; no concerns or needs at this time. Pt comes from [facility] for rehab and it is anticipated that the patient will likely return there to resume rehab. RIGHT OF WAY CLE[employer]ER met with patient at bedside. curing room worker role explained, contact information and discharge planning checklist provided. See initial assessment. Pt confirms that he came from [facility]. He states that he does not want to return "if I don't have to" and cites that he gets sick there too much. The patient is willing to return however if it is deemed that he is unsafe to discharge back home. The patient states that he lives in a travel trailer in [place] on the property of some friends. The patient has access to a FWW if needed and relies on his friends for transportation. The patient has been working with Antonette Hirsch, HCS worker at [facility] ([phone]) to get assessed for in-home caregiving. The patient states that the HCS worker is attempting to locate the patient a [facility] Assisted Living Facility. Pt identifies that he is not able to live in his trailer forever and will eventually need more help. The patient is receptive to return visits from RIGHT OF WAY [employer]ER to discuss discharge planning needs further. Air Defence Officer spoke with Levi at [facility]. They can accept the patient back with Dr. Akhtar to follow A: Pt who was previously at [facility] for rehab P: evolving; RIGHT OF WAY CLE[employer]ER to continue to follow to assess pt's discharge needs. Pt has been accepted at [facility] with Dr. Akhtar to follow if he requires this level of care. MIKE Valentino Addendum: 06/28/17 at 1736 by LINDA MOLINA SS Amended: Links added.
[2017-06-29] VITALS (11 sets, daily range): BP systolic 128–148; BP diastolic 74–82; PULSE 101–115; RESP 18–20; O2SAT 93–98
[2017-06-29 03:04] LABS: BASOPHILS % (AUTO) 0.1 % (0-3); EOSINOPHILS % (AUTO) 0 % (0-5); MONOCYTES % (AUTO) 5.2 % (4-12); Mean Corpuscular Hemoglobin 26.4 pg (27.0-35.0); Mean Corpuscular Volume 81.3 fL (81-100); NEUTROPHILS % (AUTO) 88.9 % (40-74); Platelet Count 357 bil/L (150-400)
[2017-06-29 03:08] LABS: Free Thyroxine Index 2.7 (1.2-4.9); Thyroxine (T4) 8.8 ug/dL (4.5-12.0)
[2017-06-29] MEDS: Albuterol 2.5 mg/3 mL Inhalation Solution NEB PRN (04:43)
--- NOTE | 2017-06-29 05:57 | NUR ---
upset stomach pt feeling like his stomach was upset, pt wasn't sure if it was nausea just feeling like his stomach was upset, gave IV zofran and pt refused his HS dose of simethicone. pt reports that he feels really good this morning and hasn't felt this good in a while.
[2017-06-29] MEDS: predniSONE 20 mg Tablet PO SCH (07:59)
[2017-06-29] MEDS: Albuterol-Ipratropium 3 mL Inhalation Solution NEB SCH ×4 (08:00→19:46)
[2017-06-29] MEDS: ROFLUMILAST INHALATION SCH (08:30)
[2017-06-29] MEDS ORDERED: Vancomycin Serum Trough XX ONE (14:30)
--- NOTE | 2017-06-29 15:36 | PCM.PNMED ---
Subjective Date of Service Jun 29, 2017 Subjective Patient states overall he feels very good, he talked with his halfway and this is reported to no longer be an option for him to return to as they wanted him to pay out of pocket to hold his bed. He feels ready for discharge back to home, still feels short of breath upon exertion denies chest pain or cough. Exam Vital Signs Vital Sign - Last Date Time Temp Pulse Resp B/P Pulse Ox O2 Delivery O2 Flow Rate FiO2 06/29/17 15:03 Supplement Oxygen 06/29/17 11:40 36.7 110 20 132/79 97 3.00 Intake and Output 06/28/17 06/28/17 06/29/17 Cumulative From/Thru 15:00 23:00 07:00 06/27/17 19:35 - 06/29/17 06:16 Intake Total 200 ml 540 ml 800 ml 2540 ml Output Total 1 ml 775 ml 1150 ml 1926 ml Balance 199 ml -235 ml -350 ml 614 ml Intake Oral 200 ml 540 ml 800 ml 1540 ml IV Total 1000 ml Output Urine Total 1 ml 775 ml 1150 ml 1926 ml # Bowel Movements 1 1 Exam General: Awake and alert in no acute distress, well-developed, well-nourished, appropriately interactive, nasal cannula placed HEENT: Normocephalic, atraumatic. Neck: Supple with full range of motion. No jugular venous distension. Cardiovascular: Tachycardic rate with regular rhythm, no murmurs appreciated Pulmonary: Decreased air movement across all lung contreras, expiratory wheezes bilateral upper lung contreras. Barrel chest. Prolonged expiratory phase Abdomen: Soft, nontender, nondistended. Extremities: No clubbing, cyanosis, edema Skin: Normal temperature, turgor, and texture Neurological: Cranial nerves grossly intact. Psychiatric: Normal mood and affect. Alert and oriented to person, place, and time. IVs and Medications Medications Reviewed: Medications were reviewed in detail Lab and Diagnostics Result Diagram: 06/29/1723706/29/17237 X-Rays, CTs and MRIs . X-RAY CHEST ONE VIEW, PORTABLE IMPRESSION: 1. Severe emphysematous change with overlying aspiration/infection or pulmonary edema. Dictated by: Maia Tamez M.D. on 06/27/2017 CT ANGIO CHEST PULMONARY EMBOLISM IMPRESSION: 1. Changes of emphysema throughout the lungs. 2. Changes of increased markings in the left lower lobe suspicious for minimal infiltrate/pneumonia. 3. 18 mm nodular density posteroinferior left upper lobe suspicious for lung primary. 4. Probable atelectasis and consolidation in left lower lobe versus less likely second mass lesion. 5. CT followup in 3 months to evaluate for the left lower lobe and left upper lobe lesion suspicious for lung primary is suggested previous Fleischner Society criteria for SOLID lung nodule followup. Nodule size (mm)Low-risk patientHigh-risk calpith8Es follow-up neededFollow-up at 12 mo; if no change, no further follow-up>[id number] CT at 12 mo; if no change, no further follow-up needed.Initial follow-up CT at 6-12 mo, then 18-24 mo if no change. >6-8Initial follow-up CT at 6-12 mo, then 18-24 mo if no change. Initial follow-up CT at 3-6 mo, then 9-12 mo and 24 mo if no change. > 8Follow-up CT at 3, 9, 24 mo. Or PET and/or biopsy.Same as for low-risk pts. 6. small hiatal hernia. Dictated by: Kael Velazquez M.D. on 06/28/2017 CT ABDOMEN AND PELVIS WITH CONTRAST IMPRESSION: Tissue planes around the surgical site, the abdominal aortic aneurysm are slightly better defined than previously. No evidence for leakage is appreciated on this study. No change in the appearance of the aorta are repair is seen. There has been loss of cortex of the anterior aspect of the right kidney as noted previously and this is unchanged. The left kidney is normal in appearance. COPD changes at the lung bases. No acute edematous changes or fluid collections in the abdomen and pelvis. If leakage of the aneurysm repair of the aorta is suspected then a dedicated aortic study with CT without and with contrast would be needed. Dictated by: Kael Velazquez M.D. on 06/28/2017 CT ANGIO ABDOMEN PELVIS IMPRESSION: 1. Aortobifemoral graft is intact without evidence of an endovascular leak. The aneurysm sac has not increased in size. Irregularity at the proximal anastomosis is unchanged since previous exams. 2. Abnormal enhancement of the lateral margin of the entire right kidney with delayed excretion of contrast is felt to be vascular in origin, given the small size of the dominant (lower) right renal artery. This appearance is similar to the exam dated 06/11/17, but is new since 05/12/17, likely related to the acute aortic rupture and/or aortic surgery. The left kidney is unremarkable. 3. Delayed excretion of contrast is suggestive of renal disease. Please correlate clinically to exclude acute renal failure. 4. Small hiatal hernia. No bowel obstruction. 5. Nonspecific prominence of the wall of the distal colon probably is related to incomplete distention. Please correlate clinically to exclude colitis. 6. Centrilobular emphysema the lung bases. Dictated by: Nehemias Felix M.D. on 06/28/2017 Cardiac Echo Impressions Echocardiogram Report Interpretation Summary: The left ventricle is normal in size, wall thickness, and systolic function without any focal wall motion abnormalities. The ejection fraction is estimated to be 55-60%. There has been no significant change since the previous study. Diastolic function could not be accurately assessed due to tachycardia. The right ventricle is normal in size, thickness and function. Pulmonary artery pressures cannot be estimated because of the lack of a measurable TR jet velocity. The left atrial size is normal. Right atrial size is normal. There is mild mitral regurgitation. Compared to the prior echo study, there has been a decrease in the severity of mitral regurgitation. There is mild to moderate aortic regurgitation. This is unchanged compared to the previous study. There is no other significant valvular heart disease. The aortic root is normal size. Assessment & Plan Mr. 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 Chronic respiratory failure on home O2 Suspected acute exacerbation COPD, present on admission, ongoing -Does not report increase in cough or oxygen needs. Denies sputum production -DC Solu-Medrol, start oral prednisone 40 mg daily -Continue azithromycin -Duoneb qidwa + accuneb q2h prn Tachycardia, chronicity unknown, present on admission, under evaluation This is most likely due to increased oxygen demand secondary to COPD progression - Pt reports x3d hx prior to admission, with history of tachycardia during previous hospital admissions - May be indicative of underlying infection, and/or COPD exacerbation, anxiety, or pain; patient appears euvolemic at time of admission; PE was ruled out via CTA - Continue with steroids, patient continues to require nebulizer treatments - Hemoglobin normal, troponin negative - Continue Tele, EKG when necessary - TSH low though free T4 and T3 normal - Echo as above - Continue to monitor Suspected PNA, acute, present on admission, unlikely - Patient reports recent history of pneumonia, and many sick contacts at skilled facility - Remains afebrile with no white count or increase in peripheral calcitonin. Patient denies any increase in cough or sputum production - CTA showed no PE, did show ill-defined nodular opacity left upper lobe lung field measuring 1.8 cm - DDx: Ongoing pneumonia, new development of pneumonia, resolving infection, malignancy - Appropriate cultures and serologies negative to date - No leukocytosis, pro-calcitonin negative - Discontinue antibiotics Zosyn and vancomycin Abnormal CT finding, chronicity unknown, present on admission, under evaluation - CTA completed 06/28/2017: Left upper lobe lesion measuring 1.8 cm described as an ill-defined nodular opacity - DDx: Resolving pneumonia, ongoing pneumonia, early stage pneumonia, malignancy , possibility of other pulmonology culprits such as TB - Pt does have h/o smoking and extensive COPD, malignancy is also a possibility in this scenario - Recommend follow-up in 3 months for additional imaging Elevated d-dimer, chronicity unknown, present on admission, under evaluation - On admit: D-dimer 1.62; pt high risk for PE secondary to recent surgery, - CTA did not reveal any acute occlusive PE; awaiting final reading - DDx: recent surgeries/interventions, NC, infection, inflammation, malignancy - No indication for heparin gtt History of AAA s/p aortobifemoral bypass open repair, presumed stable - Imaging shows this to be stable Microcytic hypochromic anemia, chronicity unknown, present on admission, monitor - On admit: Hemoglobin 13.4, hematocrit 40.5, MCV 80.4, MCH 26.6 - Likely secondary to iron deficiency, and/or extensive recent interventions and procedures - Continue to monitor at this time Hypertension, chronic, presumed stable - Home medications listed as amlodipine 10 mg daily - Held amlodipine Hyperlipidemia, chronic, presumed stable -Continue home atorvastatin Sepsis, acute, present on admission, resolved - No longer meets sepsis criteria - On admit: P119, R23, remains tachycardic though respiratory rate has improved - Lactic acid normal - Appropriate cultures and serologies negative to date - No white count, pro-calcitonin essentially negative, chest x-ray does not show acute pneumonia - Discontinued Zosyn and Vanco, continued azithromycin for COPD exacerbation PRN fever, bowel, nausea, pain DVT: SCDs Diet: general GI: H2B IVF: None Code: FULL CODE Patient will most likely discharge home tomorrow with home health GI Prophylaxis: H2 benton VTE Prophylaxis: SCDs Resuscitation Status: CPR: Attempt Resuscitation Attending Statement The patient was seen and examined together with Dr. Torres on June 30 and I agree with the history, exam findings, and plan as outlined in the note above. I did participate in all aspects of the services provided today, including documentation and the plan of care. Patient is improving. He will continue to be treated for COPD exacerbation and acute on chronic respiratory failure with hypoxia. He is responding to corticosteroids and bronchodilators. There is no evidence of active pneumonia. He will likely be stable for discharge within the next 1 day SHAUNA TORRES DO Jun 29, 2017 15:36 Goldy Conroy MD Jul 01, 2017 08:34
--- NOTE | 2017-06-29 18:38 | NUR ---
oxygenation/anxiety/plan pt has been on 3L NC tolerating well all day. Worked with physical therapy and they determined he is safe to go home. Pt wants to stay today and go home tomorrow. Pt is concerned about his anxiety making his breathing worse. Pt worries and becomes over focused on aspects of his care at times but is self aware that he is getting anxious and is able to calm down.
[2017-06-30] VITALS (9 sets, daily range): BP systolic 140–147; BP diastolic 79–83; PULSE 98–113; RESP 18–20; O2SAT 97–100
[2017-06-30] MEDS: Albuterol 2.5 mg/3 mL Inhalation Solution NEB PRN (00:25)
[2017-06-30 02:50] LABS: BASOPHILS % (AUTO) 0.1 % (0-3); EOSINOPHILS % (AUTO) 0.1 % (0-5); MONOCYTES % (AUTO) 8.4 % (4-12); Mean Corpuscular Volume 81.7 fL (81-100); NEUTROPHILS % (AUTO) 79.7 % (40-74); Platelet Count 342 bil/L (150-400)
[2017-06-30 03:22] LABS: Magnesium 1.8 mg/dL (1.6-2.6)
--- NOTE | 2017-06-30 05:38 | NUR ---
anxiety pt not as anxious tonight, he was able to sleep better and his breathing was better, pts HR in the low 100s which pt states helps with his SOB and anxiety
[2017-06-30] MEDS ORDERED: Potassium Chloride 20 mEq SR Tablet PO ONE ×2 (05:50→08:15)
--- NOTE | 2017-06-30 06:08 | NUR ---
potassium pts potassium was 3.0 this morning, called MD received order 40mEq KCL and gave, pt tolerating
[2017-06-30] MEDS: Albuterol-Ipratropium 3 mL Inhalation Solution NEB SCH ×3 (07:28→14:13)
[2017-06-30] MEDS: predniSONE 20 mg Tablet PO SCH (08:26)
[2017-06-30] MEDS: ROFLUMILAST INHALATION SCH (08:27)
--- NOTE | 2017-06-30 11:00 | NUR ---
Social Work: Readiness for Discharge/Multidisciplinary Rounds D: Pt discussed in multidisciplinary rounds. The patient will likely discharge today. Per PT notes, the patient is back at his baseline and they are not recommending skilled rehab for the patient. The patient has expressed to multiple providers and this WELFARE PROJECT MANAGER that he would like to return home if possible. At this time, the attending and resident providers feel that this is a realistic goal. They agree that the patient could benefit from home health for nursing for disease process education and medication education. CM order placed for HH RN- WELFARE PROJECT MANAGER acknowledges order. WELFARE PROJECT MANAGER met with the patient at bedside to assess for unmet needs and to explained recommendations for HH RN care. The patient is very pleased to hear that he will be able to discharge home. He does not feel that he will require a home health nurse and states that he intends to complete outpatient physical therapy as he believes that his trailer would not be a conducive space to do exercises. The patient does not feel that he requires a visiting nurse at this time but understands that he can request this from his PCP post-discharge. Patient is requesting information about local assisted living facilities. He has been working with his HCS worker, Antonette Arpitnaomi, trying to get placed somewhere salvage determiner. He is aware of he challenges of finding a [facility] bed. WELFARE PROJECT MANAGER provided him with local [facility] facility brochures. WELFARE PROJECT MANAGER left a message for HCS worker, notifying of the patient's discharge plan and that clinicals will be faxed to her office. WELFARE PROJECT MANAGER left message for manpower development specialist manager requesting she fax clinicals. A: Pt who is ambulating 200+ feet with the use of a FWW. Pt is declining home health and wants to go home to his trailer in [place]. P: Anticipate pt to discharge home via POV; patient has good social support from friends who live on the same property. Pt declining HH. No further sw needs identified at this time. MIKE Valentino
--- NOTE | 2017-06-30 11:00 | NUR ---
NUTRITION ASSESSMENT: ASSESS: 62 YO male presented to ED via EMS from [facility] with a three-day history of heart palpitations, increased heart rate, and general feeling of malaise, without any associated fever, chills, or abdominal pain. Initial imaging included CT abdomen and pelvis with contrast noted stable AAA repair in no associated large hematomas. Pulmonary CTA was also completed secondary to increased d-dimer, which did not reveal any acute occlusive PE's, but did reveal a 1.8 cm ill-defined nodular opacity in the left upper lobe. Patient was admitted for evaluation and treatment of suspected pneumonia versus acute exacerbation of COPD. Of note, the patient has lost 9.13 kg x 6 weeks = 12.55%. The weight loss, in addition to obvious muscle and fat loss, is indicative of severe malnutrition. Code status: full. PMHx: Ruptured AAA status post open repair, aortobifemoral bypass; COPD with emphysema; chronic hypoxemic respiratory failure; hypertension; hyperlipidemia. DIET: PO intake 75% - 100% trays. LABS: Reviewed. K+ 3.0, Glu 117, Procalc. 0.16. MEDICATIONS: Reviewed. Prednisone. NUTRITION FOCUSED PHYSICAL ASSESSMENT: GI symptoms / stool: BM x 1 (06/28). Helio: 20. Skin Integrity: No issues reported. ANTHROPOMETRICS: Current Wt: 63.6 kg, BMI 21.0 kg/m2. Admit weight: 65.45 kg. IBW: 67.25 kg (97% IBW) ESTIMATED NEEDS (COPD): Calories: 2018 - 2354 kcal (30 - 35 kcal / kg BW) Protein: 79 - 98 g protein (1.2 - 1.5 g / kg BW) NUTRITION DIAGNOSIS: 1)Severe malnutrition related to advanced COPD, possible cancer, as evidenced by 9.13 kg x 6 weeks = 12.55%. INTERVENTION: 1) Will send Ensure and Magic Cups on trays to mitigate further weight loss during admission. 2)Patient will require supplements at discharge. MONITOR/EVALUATE: POC, PO intake, labs, weight, nutritional status. Follow up per high nutrition risk guidelines.
[2017-06-30] MEDS ORDERED: ROFL500T PO (11:36)
[2017-06-30] MEDS ORDERED: IPRA3AMP IH (11:36)
[2017-06-30] MEDS ORDERED: LIP40 PO (11:36)
[2017-06-30] MEDS ORDERED: SIME80TA53 PO (11:36)
[2017-06-30] MEDS ORDERED: AMLO10TA3 PO (11:36)
[2017-06-30] MEDS ORDERED: FLUT12AE6 IH (11:36)
--- NOTE | 2017-06-30 11:44 | PCM.DIMED ---
SHAUNA TORRES DO 06/30/17 1141: Discharge Instructions Date of Service Jun 30, 2017 Dates of Hospitalization Jun 28, 2017 at 00:55 Discharge Diagnosis Discharge Diagnosis Suspected acute exacerbation COPD Sustained Tachycardia Suspected PNA Abnormal CT finding Elevated d-dimer History of AAA s/p aortobifemoral bypass open repair Microcytic hypochromic anemia Hypertension Hyperlipidemia Sepsis, acute Medication Instructions Additional med instructions Please continue to take all of your regularly prescribed medications, I have renewed them all and set them all to the preferred pharmacy on our record. Diet Discharge Diet: Heart Healthy Activity Discharge Activity: Limited until seen by PCP Call your provider Call your provider for: Fever or Chills, Shortness of breath, Bleeding, Chest pain, Vomitting, Excessive diarrhea, Weakness (unilateral) Patient Instructions Patient Instructions Please follow-up with your primary care provider within the next week regarding this hospital visit. It sounds as if you do not wish to have home health nursing or physical therapy follow-up with you so I strongly encourage you to see your primary care provider as soon as possible regarding this hospital admission as well as to set up additional imaging to monitor the spot we found in your lungs to ensure its resolution in the next 3 months. Follow-up plan Please follow with her primary care provider within the next week. Follow-up Provider: James Blackburn MD Follow-up with PCP in: 1 week Goldy Conroy MD 07/01/17 0911: Discharge Instructions Attending's Statement The patient was seen and examined together with Dr. Torres on June 30 and I agree with the history, exam findings, and plan as outlined in the note above. I did participate in all aspects of the services provided today, including documentation and the plan of care. We will continue to treat the patient at time of discharge with bronchodilators and a prednisone taper. We will also helped arrange for home health services. SHAUNA TORRES DO Jun 30, 2017 11:41 Goldy Conroy MD Jul 01, 2017 09:11
--- NOTE | 2017-06-30 12:28 | NUR ---
Faxed clinicals to [facility] per SOD FARMER
--- NOTE | 2017-06-30 15:09 | NUR ---
Discharge home discharge instructions, medications and follow-up care reviewed with patient. questions answered at that time. patient verbalized understanding and agrees with plan of care. friend driving patient home patient denied pain/discomfort. denies SOB at rest. escorted to vehicle via wheelchair.
--- NOTE | 2017-06-30 15:21 | DRSVH ---
PROCEDURE: X-RAY CHEST ONE VIEW, PORTABLE ([id number]) INDICATIONS: SHORT OF BREATH TECHNIQUE: One view of the chest was acquired. COMPARISON: [facility], CT, CT ANGIO CHEST PE, 06/27/2017, 22:48. [facility] , CR, XR CHEST 1VW (PORTABLE), 06/27/2017, 19:29. FINDINGS: Surgical changes and devices: None. Lungs and pleura: No pleural effusions or pneumothorax. Lung volumes are increased with flattening of the hemidiaphragms suggesting COPD. persistent mid and left basilar airspace opacity similar to pr ior examination. Mediastinum: Mediastinal contours appear normal. Heart size is normal. Bones and chest wall: No suspicious bony lesions. Overlying soft tissues appear unremarkable. IMPRESSION: Lung volumes are increased suggesting COPD, correlate with pulmonary functions test. Mid left lung basilar patchy airspace opacity similar prior examination suggestive of aspiration or p neumonia. Dictated by: Ricci AGUIAR Interpreted: Madelaine Resendez MD on 06/29/2017 at 9:30 Approved by: Madelaine Resendez M.D. on 06/30/2017 at 15:19
--- NOTE | 2017-06-30 18:34 | PCM.DC.MED ---
Discharge Summary Date of Service Jun 30, 2017 Dates of Hospitalization Date of Hospital Admission Jun 28, 2017 at 00:55 Date of Discharge: Jun 30, 2017 Providers: Admitting Physician: Enrique Pham MD Primary Care Physician: James Blackburn MD Attending Physician: Goldy Conroy MD Diagnosis at Time of Discharge Diagnosis at Time of Discharge Suspected acute exacerbation COPD Sustained Tachycardia Suspected PNA Abnormal CT finding Elevated d-dimer History of AAA s/p aortobifemoral bypass open repair Microcytic hypochromic anemia Hypertension Hyperlipidemia Sepsis, acute Procedures XRay, CTs & MRIs . X-RAY CHEST ONE VIEW, PORTABLE IMPRESSION: 1. Severe emphysematous change with overlying aspiration/infection or pulmonary edema. Dictated by: Maia Tamez M.D. on 06/27/2017 CT ANGIO CHEST PULMONARY EMBOLISM IMPRESSION: 1. Changes of emphysema throughout the lungs. 2. Changes of increased markings in the left lower lobe suspicious for minimal infiltrate/pneumonia. 3. 18 mm nodular density posteroinferior left upper lobe suspicious for lung primary. 4. Probable atelectasis and consolidation in left lower lobe versus less likely second mass lesion. 5. CT followup in 3 months to evaluate for the left lower lobe and left upper lobe lesion suspicious for lung primary is suggested previous Fleischner Society criteria for SOLID lung nodule followup. Nodule size (mm)Low-risk patientHigh-risk [id number] follow-up neededFollow-up at 12 mo; if no change, no further follow-up>[id number] CT at 12 mo; if no change, no further follow-up needed.Initial follow-up CT at 6-12 mo, then 18-24 mo if no change. >6-8Initial follow-up CT at 6-12 mo, then 18-24 mo if no change. Initial follow-up CT at 3-6 mo, then 9-12 mo and 24 mo if no change. > 8Follow-up CT at 3, 9, 24 mo. Or PET and/or biopsy.Same as for low-risk pts. 6. small hiatal hernia. Dictated by: Kael Velazquez M.D. on 06/28/2017 CT ABDOMEN AND PELVIS WITH CONTRAST IMPRESSION: Tissue planes around the surgical site, the abdominal aortic aneurysm are slightly better defined than previously. No evidence for leakage is appreciated on this study. No change in the appearance of the aorta are repair is seen. There has been loss of cortex of the anterior aspect of the right kidney as noted previously and this is unchanged. The left kidney is normal in appearance. COPD changes at the lung bases. No acute edematous changes or fluid collections in the abdomen and pelvis. If leakage of the aneurysm repair of the aorta is suspected then a dedicated aortic study with CT without and with contrast would be needed. Dictated by: Kael Velazquez M.D. on 06/28/2017 CT ANGIO ABDOMEN PELVIS IMPRESSION: 1. Aortobifemoral graft is intact without evidence of an endovascular leak. The aneurysm sac has not increased in size. Irregularity at the proximal anastomosis is unchanged since previous exams. 2. Abnormal enhancement of the lateral margin of the entire right kidney with delayed excretion of contrast is felt to be vascular in origin, given the small size of the dominant (lower) right renal artery. This appearance is similar to the exam dated 06/11/17, but is new since 05/12/17, likely related to the acute aortic rupture and/or aortic surgery. The left kidney is unremarkable. 3. Delayed excretion of contrast is suggestive of renal disease. Please correlate clinically to exclude acute renal failure. 4. Small hiatal hernia. No bowel obstruction. 5. Nonspecific prominence of the wall of the distal colon probably is related to incomplete distention. Please correlate clinically to exclude colitis. 6. Centrilobular emphysema the lung bases. Dictated by: Nehemias Felix M.D. on 06/28/2017 Cardiac Echo Impression Echocardiogram Report Interpretation Summary: The left ventricle is normal in size, wall thickness, and systolic function without any focal wall motion abnormalities. The ejection fraction is estimated to be 55-60%. There has been no significant change since the previous study. Diastolic function could not be accurately assessed due to tachycardia. The right ventricle is normal in size, thickness and function. Pulmonary artery pressures cannot be estimated because of the lack of a measurable TR jet velocity. The left atrial size is normal. Right atrial size is normal. There is mild mitral regurgitation. Compared to the prior echo study, there has been a decrease in the severity of mitral regurgitation. There is mild to moderate aortic regurgitation. This is unchanged compared to the previous study. There is no other significant valvular heart disease. The aortic root is normal size. Brief History History of present illness per Dr. Remi D.O. 06/28/2017 "Mr. Chang is a pleasant 62-year-old gentleman with a recent history of ruptured AAA status post open aortobifemoral bypass, chronic hypoxemic respiratory failure secondary to advancing COPD with emphysematous changes, and hypertension, presented to [facility] via EMS from [facility] with a three-day history of heart palpitations, increased heart rate, and general feeling of malaise, without any associated fever, chills, or abdominal pain. Initial imaging included CT abdomen and pelvis with contrast noted stable AAA repair in no associated large hematomas, pulmonary CTA was also completed secondary to increased d-dimer, which did not reveal any acute occlusive PEs, but did reveal a 1.8 cm ill-defined nodular opacity in the left upper lobe. Patient was admitted for evaluation and treatment of suspected pneumonia versus acute exacerbation of COPD. - Hospital day one Mr. Chang states that he has noticed increased heart rate or decrease in 3 days , without any exacerbating or initial etiology identified. He denies any changes to his medications. He notes many sick contacts within his care facility, and shares that his recovery from his recent AAA repair has been unremarkable. He denies any associated fever, chills, nausea, persistent vomiting; patient does note to one episode of vomiting prior to admission, thought to be secondary to a protein drink mixed with applesauce, which he reports made him nauseated and led to one episode of emesis. He notes complete resolution of his nausea after that episode. He denies any changes to his cardiac medications, and denies any activity above baseline. He denies any increase in his oxygen supplementation, reported as 3 L continuous. Patient was recently hospitalized at [facility], and emergent transfer from [facility], secondary to ruptured AAA. At [facility], endovascular repair was converted to open repair secondary to malfunction of the stent. He has been recovering at [facility] since discharge from [facility] earlier this month. Patient recalls that he was diagnosed with pneumonia during that hospitalization. Patient states that he was given a "experimental" antibiotic to treat this pneumonia, but is unable to recall the type of pneumonia nor the name of the treatment. In the ED, T 36.6, P1 122, R 27, blood pressure 154/98, 96% on 3 L nasal cannula ; initial labs revealed white count 5.2 with no shift, hemoglobin 13.4, potassium 3.4, remaining electrolytes and range, creatinine 1.04, LFTs within range, troponin T negative, procalcitonin 0.12; d-dimer 1.62; Initial imaging included CT abdomen and pelvis with contrast noted stable AAA repair in no associated large hematomas, pulmonary CTA was also completed secondary to increased d-dimer, which did not reveal any acute occlusive PEs, but did reveal a 1.8 cm ill-defined nodular opacity in the left upper lobe. Initial therapies included nebulizers as needed, Zosyn, Solu-Medrol 125 mg IV push 1, and 2 L normal saline. Patient was transported to medical floor in stable condition, with continuation of steroid administration, antibiotics including Zosyn and azithromycin." Hospital Course Mr. Chang is a 62-year-old male with a recent history of ruptured AAA status post open aortobifemoral bypass, chronic hypoxemic respiratory failure secondary to advancing COPD with emphysematous changes, and hypertension, admitted for COPD exacerbation, sepsis and pneumonia ruled out. Chronic respiratory failure on home O2 Suspected acute exacerbation COPD, present on admission, ongoing -Does not report increase in cough or oxygen needs. Denies sputum production -DC Solu-Medrol, start oral prednisone 40 mg daily -Continue azithromycin -Duoneb qidwa + accuneb q2h prn Tachycardia, chronicity unknown, present on admission, under evaluation This is most likely due to increased oxygen demand secondary to COPD progression - Pt reports x3d hx prior to admission, with history of tachycardia during previous hospital admissions - May be indicative of underlying infection, and/or COPD exacerbation, anxiety, or pain; patient appears euvolemic at time of admission; PE was ruled out via CTA - Continued with steroids, patient continues to require nebulizer treatments - Hemoglobin normal, troponin negative - Tele, EKG when necessary - TSH low though free T4 and T3 normal - Echo as above - Continue to monitor Suspected PNA, acute, present on admission, unlikely - Patient reports recent history of pneumonia, and many sick contacts at skilled facility - Remains afebrile with no white count or increase in procalcitonin. Patient denies any increase in cough or sputum production - CTA showed no PE, did show ill-defined nodular opacity left upper lobe lung field measuring 1.8 cm - DDx: Ongoing pneumonia, new development of pneumonia, resolving infection, malignancy - Appropriate cultures and serologies negative to date - No leukocytosis, pro-calcitonin negative - Discontinued antibiotics Zosyn and vancomycin Abnormal CT finding, chronicity unknown, present on admission, under evaluation - CTA completed 06/28/2017: Left upper lobe lesion measuring 1.8 cm described as an ill-defined nodular opacity - DDx: Resolving pneumonia, ongoing pneumonia, early stage pneumonia, malignancy , possibility of other pulmonology culprits such as TB - Pt does have h/o smoking and extensive COPD, malignancy is also a possibility in this scenario - Recommend follow-up in 3 months for additional imaging Elevated d-dimer, chronicity unknown, present on admission, under evaluation - On admit: D-dimer 1.62; pt high risk for PE secondary to recent surgery, - CTA did not reveal any acute occlusive PE; awaiting final reading - DDx: recent surgeries/interventions, NH, infection, inflammation, malignancy - No indication for heparin gtt History of AAA s/p aortobifemoral bypass open repair, presumed stable - Imaging shows this to be stable Microcytic hypochromic anemia, chronicity unknown, present on admission, monitor - On admit: Hemoglobin 13.4, hematocrit 40.5, MCV 80.4, MCH 26.6 - Likely secondary to iron deficiency, and/or extensive recent interventions and procedures - Continue to monitor at this time Hypertension, chronic, presumed stable - Home medications listed as amlodipine 10 mg daily - Held amlodipine Hyperlipidemia, chronic, presumed stable -Continue home atorvastatin Sepsis, acute, present on admission, resolved - No longer meets sepsis criteria - On admit: P119, R23, remains tachycardic though respiratory rate has improved - Lactic acid normal - Appropriate cultures and serologies negative to date - No white count, pro-calcitonin essentially negative, chest x-ray does not show acute pneumonia - Discontinued Zosyn and Vanco, continued azithromycin for COPD exacerbation Exam Vital Signs (Last) Date Time Temp Pulse Resp B/P Pulse Ox O2 Delivery O2 Flow Rate FiO2 06/30/17 14:13 98 20 98 Nasal Cannula 3.00 06/30/17 11:38 36.8 147/83 Exam General: Awake and alert in no acute distress, sitting up in hospital bed nasal cannula in place HEENT: Normocephalic, atraumatic. Neck: Supple with full range of motion. No jugular venous distension. Cardiovascular: Tachycardic rate with regular rhythm, no murmurs appreciated Pulmonary: Decreased air movement across all lung contreras, expiratory wheezes bilateral upper lung contreras. Barrel chest. Prolonged expiratory phase with wheezes Abdomen: Soft, nontender, nondistended. Extremities: No clubbing, cyanosis, edema Skin: Normal temperature, turgor, and texture Neurological: Cranial nerves grossly intact. Psychiatric: Normal mood and affect. Alert and oriented to person, place, and time. Test 06/27/17 19:29 06/28/17 00:00 06/28/17 01:26 06/28/17 03:25 Prothrombin Time 11.0sec (8.1-12.5) Prothromb Time International Ratio 1.03ratio D-Dimer 1.62mg/L FEU (<0.50) Hold Welsh Top Tube Received (Received) Urine Color Straw (YELLOW) Urine Appearance Clear (CLEAR,HAZY) Urine pH 7.0 (5.0-8.0) Urine Specific [place] 1.034 (1.003-1.035) Urine Protein Negativemg/dL (NEG,TRACE) Urine Glucose (UA) Negativemg/dL (NEGATIVE) Urine Ketones Negativemg/dL (NEGATIVE) Urine Occult Blood Trace (NEGATIVE) Urine Nitrite Negative (NEGATIVE) Urine Bilirubin Negative (NEGATIVE) Urine Urobilinogen Normalmg/dL (NORMAL) Urine Leukocyte Esterase Negative (NEGATIVE) Urine RBC 3-10/hpf (0-2) Urine WBC 0-5/hpf (0-5) Urine Epithelial Cells Occasional/hpf (NONE-MOD) Urine Crystals None seen (NONE SEEN) Urine Bacteria Few/hpf (NONE-FEW) Urine Hyaline Casts None/lpf (NONE) Urine Granular Casts None seen (NONE SEEN) Urine Waxy Casts None seen (NONE SEEN) Urine Red Blood Cell Casts None seen (NONE SEEN) Urine White Blood Cell Casts None seen (NONE SEEN) Urine Mucus None seen (None Seen) Urine Trichomonas None seen (NONE SEEN) Urine Yeast None (NONE SEEN) Urinalysis Comment None Urine Culture Reflexed Not indicated Hold Urine Received (Received) Urine Legionella pneumophilia Ag Negative (Negative) Lactic Acid Level 1.8mmol/L (0.4-2.0) Troponin T 0.010ug/L (0.0-0.011) Thyroid Stimulating Hormone (TSH) 0.333uIU/mL (0.450-4.500) Free Thyroxine Index 2.7 (1.2-4.9) Thyroxine (T4) 8.8ug/dL (4.5-12.0) Triiodothyronine (T3) Uptake 31% (24-39) Test 06/30/17 02:30 06/30/17 12:30 White Blood Count 8.8th/mm3 (3.8-10.1) Red Blood Count 3.77mil/mm3 (4.40-5.80) Hemoglobin 9.8g/dL (13.8-17.2) Hematocrit 30.8% (41.0-50.0) Mean Corpuscular Volume 81.7fL (81-100) Mean Corpuscular Hemoglobin 26.0pg (27.0-35.0) Mean Corpuscular Hemoglobin Concent 31.8% (32.0-37.0) Red Cell Distribution Width 14.2% (12.3-15.4) Platelet Count 342bil/L (150-400) Neutrophils (%) (Auto) 79.7% (40-74) Lymphocytes (%) (Auto) 11.5% (14-46) Monocytes (%) (Auto) 8.4% (4-12) Eosinophils (%) (Auto) 0.1% (0-5) Basophils (%) (Auto) 0.1% (0-3) Sodium Level 137mEq/L (134-144) Chloride Level 98mEq/L (97-108) Carbon Dioxide Level 25mmol/L (18-29) Blood Urea Nitrogen 19mg/dL (8-27) Creatinine 0.88mg/dL (0.76-1.27) Estimat Glomerular Filtration Rate 93mL/min (>59) Glucose Level 117mg/dL (60-99) Calcium Level 8.9mg/dL (8.5-10.1) Magnesium Level 1.8mg/dL (1.6-2.6) Total Bilirubin 0.3mg/dL (0.0-1.2) Aspartate Amino Transf (AST/SGOT) 13U/L (0-50) Alanine Aminotransferase (ALT/SGPT) 14U/L (0-44) Alkaline Phosphatase 105U/L (25-160) Total Protein 6.6g/dL (6.4-8.4) Albumin 3.6g/dL (3.4-5.0) Procalcitonin 0.16ng/mL (0.00-0.08) Potassium Level 3.9mEq/L (3.5-5.2) Discharge Medications Discharge Medications Amlodipine (Amlodipine) 10 Mg Tablet 10 MG PO DAILY Prescribed by: SHAUNA TORRES DO Atorvastatin (Lipitor) 40 Mg Tablet 40 MG PO DAILY Prescribed by: SHAUNA TORRES DO Fluticasone/Salmeterol (Advair Hfa 230-21 Mcg Inhaler) 12 Gm Hfa.aer.ad 2 PUFF IH BID Prescribed by: SHAUNA TORRES DO Ipratropium/Albuterol Sulfate (Iprat-Albut 0.5-3(2.5) mg/3 mL Inhalant Soln) 3 Ml Ampul.neb 3 ML IH Q6 Prescribed by: SHAUNA TORRES DO Roflumilast (Daliresp) 500 Mcg Tablet 500 MCG PO DAILY Prescribed by: SHAUNA TORRES DO Simethicone (Gas-X) 80 Mg Tablet 80 MG PO TID Prescribed by: SHAUNA TORRES DO Additional med instructions Please continue to take all of your regularly prescribed medications, I have renewed them all and set them all to the preferred pharmacy on our record. Followup Plan Disposition: Discharged to home in stable condition Follow-up plan Please follow with her primary care provider within the next week. Discharge Diet: Heart Healthy Discharge Activity: Limited until seen by PCP Patient Instructions Please follow-up with your primary care provider within the next week regarding this hospital visit. It sounds as if you do not wish to have home health nursing or physical therapy follow-up with you so I strongly encourage you to see your primary care provider as soon as possible regarding this hospital admission as well as to set up additional imaging to monitor the spot we found in your lungs to ensure its resolution in the next 3 months. Follow-up Provider: James Blackburn MD Follow-up with PCP in: 1 week Time spent 60 min Attending Statement patient seen and examined with Dr Torres on 06/30. He is stable for discharge on prednisone, oxygen and brochodilators for his COPD exacerbation. copies to: James Blackburn MD, GILES A DO Jun 30, 2017 18:34 Goldy Conroy MD Jun 30, 2017 21:46
== END 2017-06-30 15:01 | disposition home or self-care (01) | DRG 872 ==
LOC: SED 19:17 → EDBD 19:17 → EDUNIT# 19:17 → PCC 06-28 00:55 → CCU 06-28 09:07 → PCC 06-28 09:19
PROVIDERS: ADMIT Hospitalist; ATTEND Hospitalist
DX: A41.9 Sepsis, unspecified organism (principal); J96.11 Chronic respiratory failure with hypoxia; Z99.81 Dependence on supplemental oxygen; J44.1 Chronic obstructive pulmonary disease with (acute) exacerbation; D38.1 Neoplasm of uncertain behavior of trachea, bronchus and lung; I10 Essential (primary) hypertension; E78.5 Hyperlipidemia, unspecified; Z87.891 Personal history of nicotine dependence; D50.9 Iron deficiency anemia, unspecified; Z98.890 Other specified postprocedural states